=== PATIENT | male | born 1955 | race Caucasian/White ===

== ENCOUNTER 2025-08-03 23:54 | Inpatient (IN) | payer BC, SELFPAY ==
[2025-08-03 20:56] VITALS: BP 157/100
[2025-08-03 21:14] LABS: Hematocrit 40.6 % (39.0-52.0); Hemoglobin 13.8 g/dL (13.0-18.0); Mean Corp Hgb Conc. 34.0 g/dL (33.0-37.0); Mean Corpuscular Volume 90.2 fL (80.0-94.0); Nucleated Red Blood Cells % 0 % (-); Platelet Count 188 10^3/uL (130-400); Red Cell Dist. Width 12.6 % (11.5-14.5)
[2025-08-03 21:36] LABS: ALT (SGPT) 30 U/L (0-50); AST (SGOT) 27 U/L (17-59); Albumin 4.6 g/dl (3.5-5.0); Alkaline Phosphatase 61 U/L (38-126); Blood Urea Nitrogen 15 mg/dl (9-20); Calcium 9.6 mg/dl (8.4-10.2); Carbon Dioxide 25 mmol/L (22-30); Chloride 111 mmol/L (98-107); Glucose 104 mg/dl (70-99); Potassium 4.4 mmol/L (3.5-5.1); Sodium 141 mmol/L (135-145); Total Protein 7.2 g/dl (6.3-8.2); eGFR > 60.00
[2025-08-03 21:54] LABS: Troponin I 0.058 ng/ml
[2025-08-03 22:03] VITALS: BP 160/87
[2025-08-03 22:45] VITALS: BP 160/87
[2025-08-03 23:00] VITALS: BP 148/81
[2025-08-03 23:28] VITALS: BMI 23.1
--- NOTE | 2025-08-03 23:29 | ED.GENMED ---
History of Present Illness
General
Chief Complaint: Chest Pain
Source: patient and spouse
Exam Limitations: none
Time Seen by Provider: 08/03/25 23:03
Nursing documentation reviewed up to this point in time: agreed with
History of Present Illness
History of Present Illness:
69-year-old male with history of hypertension, BPH who presents to the ER with his for evaluation of chest pain. Patient was at hot yoga tonight and when he was finishing up the class he began to experience chest pain. He describes a vague
pressure sensation around 2�3/10 intensity. He says symptoms have improved slightly but not completely resolved he says he has about 1/10 intensity pressure currently. He says he had associated paresthesias in his left arm. He denies any
shortness of breath, nausea, vomiting, diaphoresis. He says he has never had issues with exertion in the past. He says that he follows with a coat checker Dr. Steven Delacruz through [facility]. He does state he had a cath years ago and was
told 'I do not need a stent.'
Review of Systems
Review of Systems
All Other Systems: ROS reviewed and negative except as documented in HPI and ROS
Constitutional: Denies fever or chills
Respiratory: Denies trouble breathing
Cardiac: Reports chest pain; Denies diaphoresis or palpitations
ABD/GI: Denies abdominal pain or nausea
Neurological: Denies dizzy or headache
Phy Exam
Physical Exam
Physical Exam:
General: Awake, alert, oriented x3; no acute distress
Head: Normocephalic, atraumatic
Eyes: Conjunctiva normal, sclera anicteric
Throat: Airway intact, handling secretions
Neck: Trachea midline, supple without meningismus
Lungs: Clear to auscultation bilaterally, no wheezing, rales, rhonchi
Heart: Regular rate and rhythm, no murmurs, gallops, or rubs
Abd: Soft, non distended, nontender
Neuro: Grossly intact
Skin: no rash
Extremities: No edema in extremities, equal pulses in all extremities
Scores
Heart Failure Risk
Heart Failure Risk Score: Not Applicable
Heart Score for Chest Pain Patients
STEMI patient?: No
History: Highly Suspicious
ECG: Nonspecific Repolarization
Age: >/= 65 years
Risk Factors: 1 or 2 Risk Factors
Troponin: >/= 3 x Normal Limit
Heart Score for Chest Pain Patients: 8
Heart Score Risk: 72.7 % MACE over next 6 weeks
Withdrawal Assessment of Alcohol
Withdrawal Assessment Completed?: Not applicable
Course
Orders/Labs/Results
Orders:
Orders
08/03/25 20:52
Electrocardiogram (*1) Urgent
Reason for Study: Chest Pain
EKG- Treatment ONCE
08/03/25 21:06
Complete Blood Count/With Diff Urgent
Comprehensive Metabolic Panel Urgent
Troponin I Urgent
08/03/25 23:22
Aspirin Chewable [Low Strength Aspirin] 243 mg PO NOW STA
08/03/25 23:27
CARDIOLOGY CONSULT Urgent
Consulting Provider: Xander Gonzalez
Was physician already notified: Yes
08/03/25 23:31
PTT Urgent
Comment: Obtain baseline before beginning heparin infusion if not already collected
Heparin 4,000 units IV NOW STA
Nursing to Place Non Medication Order As Directed
Physician Order: PTT 6 hours after initial start of Heparin infusion
Above order entered?: Yes
08/03/25 23:45
Heparin 54320 Units/250 ml 25,000 units in 250 ml IV PER PROTOCOL
Weight to be used for heparin protocol in kilograms (kg):: 69
Protocol:: Cardiac Tx/Acute Coronary
PTT Goal Range to be used:: PTT 73 to 111 seconds
Order type:: Initial
INITIAL Infusion Dose (UNITS/KG/hr) & then follow protocol:: 15 units/kg/hr
Infusion Dose in UNITS/hr & then follow protocol (UNITS/hr):: 1,050
INFUSION RATE in mL/hr & then follow protocol (mL/hr):: 10.5
PTT less than or equal to 64 seconds:: Increase rate by 200 units/hr (+ 2 mL/hr)
PTT 64.1 to 72.9 seconds:: Increase rate by 100 units/hr (+ 1 mL/hr)
PTT 73 to 111 seconds:: Target Range. No change in rate.
PTT 111.1 to 130.9 seconds:: Decrease rate by 100 units/hr (- 1 mL/hr)
PTT 131 to 199.9 seconds:: HOLD for 1 hr. Then decrease rate by 200 units/hr (- 2 mL/hr)
PTT greater than or equal to 200 seconds:: HOLD for 2 hrs & Notify Provider. Then decrease by 200 units/hr (-
2 mL/hr)
Lab follow-up:: Each change, PTT q6h until 2 consecutive are therapeutic. Then PTT
daily.
08/03/25 23:47
Admit/Transfer Patient As Directed
Co-Sign Provider:
Level of Care: Inpatient admission
Assign to:: Telemetry
Physician / Group: Jordan
Diagnosis: NSTEMI
Reason for Telemetry: Chest Pain syndromes
Date to Stop Telemetry: 08/05/25
Time to Stop Telemetry: 11:00
Reason for Hospitalization: NSTEMI
Expected length of stay greater than two midnights?: Yes
ELOS- Estimated Length of Stay in days: 2
I certify the patient meets the requirements for IP care: Yes
PRN Pain Medication Management As Directed
May give lesser potent ordered pain med per pt: Yes
preference::
Protocol:: Medication orders for pain may be administered in a
manner that supports deferring to patient preference
when the pt is:
- Requesting an ordered lesser potent pain medication.
Least to most potent pain medications are defined
as: acetaminophen < NSAID < tramadol < opioids
(morphine, oxycodone, hydromorphone).
- Requesting a lesser dose of the same medication IF
ORDERED.
- Requesting a less intrusive route of administration
if both routes are prescribed by the provider (PO <
IV).
08/03/25 23:48
Code Status As Directed
Resuscitation Status: Full Code
08/04/25 02:21
Acetaminophen [Tylenol] 650 mg PO Q4HPRN PRN
Mag Hydrox/Al Hydrox/Simeth [Maalox] 30 ml PO Q4HPRN PRN
Nitroglycerin Sublingual [Nitrostat (Sublingual)] 0.4 mg SL [id number] PRN
Ondansetron Injectable [Zofran] 4 mg IV Q6HPRN PRN
08/04/25 02:21
Echo 2D MMode Color/Doppler Routine
Reason for Study: chest pain
VTE Contraindication Routine
VTE Mechanical Device Contraindication: Medical Contraindication
Pharmocologic Contraindication: Medical Contraindication
Heparin Protocol- PTT Orders As Directed
PTT per Heparin protocol: -Obtain CBC and baseline PTT - if not already collected.
-Obtain PTT 6 hours from start of infusion. Then, every 6 hours until 2 consecutive
PTT's are therapeutic. Then, PTT Daily.
-With each rate change, obtain PTT every 6 hours until 2 consecutive PTT's are
therapeutic. Then, PTT Daily.
Activity As Directed
Activity Level: As Tolerated
ECG as needed As Directed
ECG as needed for:: Chest Pain
Additional Instructions:: with chest pain x 2 episodes.
INT (Intravenous Needle Therapy) As Directed
Comment: maintain peripheral IV access
Intake/ Output As Directed
Frequency: Per unit guidelines
Notify MD As Directed
Notify physician if: PTT is greater than or equal to 200.
Vital Signs As Directed
Frequency: q4h
Weight As Directed
Frequency: Once
Pulse Ox/spot Check [RESP] Routine
Quantity: 1
Special Instructions: on admission and then every shift if on oxygen
08/04/25 03:00
Troponin I Q3H
Comment: at admit & Q3H for 3 total including ED draws, obtain ECG with each level
08/04/25 06:00
Electrocardiogram (*1) IN AM
Reason for Study: Chest Pain
Comment: at admission and Q3H for total of 3, to be done with each troponin
NPO
Allow oral meds: Yes
Allow clear liquids: Sips of Clears
Basic Metabolic Panel IN AM
Cardiovascular Evaluation IN AM
Complete Blood Count/No Diff IN AM
Glycohemoglobin (HgbA1c) IN AM
Troponin I Q3H
Comment: at admit & Q3H for 3 total including ED draws, obtain ECG with each level
08/05/25 06:00
Complete Blood Count/No Diff Q2D
Comment: notify provider: Platelet count < 130,000 or decrease by 50% from baseline
08/05/25 11:00
DC Protocol for Telemetry ONCE
08/07/25 06:00
Complete Blood Count/No Diff Q2D
Comment: notify provider: Platelet count < 130,000 or decrease by 50% from baseline
08/09/25 06:00
Complete Blood Count/No Diff Q2D
Comment: notify provider: Platelet count < 130,000 or decrease by 50% from baseline
08/11/25 06:00
Complete Blood Count/No Diff Q2D
Comment: notify provider: Platelet count < 130,000 or decrease by 50% from baseline
08/13/25 06:00
Complete Blood Count/No Diff Q2D
Comment: notify provider: Platelet count < 130,000 or decrease by 50% from baseline
08/15/25 06:00
Complete Blood Count/No Diff Q2D
Comment: notify provider: Platelet count < 130,000 or decrease by 50% from baseline
08/17/25 06:00
Complete Blood Count/No Diff Q2D
Comment: notify provider: Platelet count < 130,000 or decrease by 50% from baseline
08/19/25 06:00
Complete Blood Count/No Diff Q2D
Comment: notify provider: Platelet count < 130,000 or decrease by 50% from baseline
Abnormal Lab Results
08/03/25
21:06
WBC 11.9 H 10^3/uL
(4.8-10.8)
RBC 4.50 L 10^6/uL
(4.70-6.10)
Abs Immat Gran (auto) 0.1 H 10^3/uL
(0-0.05)
Absolute Neuts (auto) 9.8 H 10^3/uL
(1.4-6.5)
Neutrophils % 82.7 H %
(42.2-75.2)
Lymphocytes % 10.4 L %
(20.5-51.1)
Chloride 111 H mmol/L
(98-107)
Glucose 104 H mg/dl
(70-99)
Troponin I 0.058 H* ng/ml
08/03/25 21:06
08/03/25 21:06
Vital Signs
Initial and Last Documented VS:
Initial Vital Signs
Temp Pulse Resp BP Pulse Ox
36.9 C 80 18 157/100 97
08/03/25 20:56 08/03/25 20:56 08/03/25 20:56 08/03/25 20:56 08/03/25 20:56
Last Documented Vital Signs
Temp Pulse Resp BP Pulse Ox
36.9 C 71 16 150/90 98
08/04/25 02:12 08/04/25 02:12 08/04/25 02:12 08/04/25 02:12 08/04/25 02:12
MDM/Problems Addressed
Differential Diagnosis Includes:
ACS, GERD, costochondritis
MDM/Problems Addressed:
69-year-old male presents to the ER for evaluation of chest pain that started with exertion tonight. Symptoms have improved he says are marginal at present. Hypertensive but otherwise normal vitals. EKG not acutely ischemic. Labs were sent off
including a CBC and a CMP which showed no clinically significant abnormalities but his initial troponin is elevated at 0.052 and overall clinical picture is concerning for an acute coronary syndrome. Will treat with aspirin. Started on IV heparin.
He is on Cialis and for this reason we will hold off on nitroglycerin. Discussed case with cardiology who agreed with above. Will admit to hospitalist for continued management. Case discussed with hospitalist.
Chronic conditions affecting care:
Hypertension
Acute Exacerbation and/or Progression of Chronic Illness: HTN
*Pulse Oximetry
SaO2: 96
Oxygen Mode of Delivery: Room air
Patient hypoxic: no (96%)
*EKG
Interpreted by ED Provider?: Yes
Heart Rate: 80
Rate: normal
Rhythm: sinus
[place]: normal axis
Interval: normal interval
QRS Pattern: left vent hypertrophy
Ischemia: no ischemia
*Critical Care Note
Total Time (30-74mins, 75-104mins- exclusive of procedures): Not Applicable
Data Reviewed
Source: patient and spouse
Patient Management
Discussion with other providers: Hospitalist (Discussed with hospitalist) and Hemodialysis Charge Nurse (Discussed with coat checker)
Escalation/DeEscalation of care consider admission/obs:
Admission indicated
ED Attending Note
-
Portions of this chart may have been created with voice recognition software.� Occasional wrong word or��sound alike� substitutions may have occurred due to the inherent limitations of voice recognition software.
Discharge Plan
Departure
Patient Disposition: Admit
Date of Disposition: 08/03/25
Time of Disposition: 23:30
Admit to doctor: Jordan
Presentation/result/management discussed w/ accepting MD/DO: Hospitalist
Discharge Problem:
Non-ST elevation MA (NSTEMI)
Interventions
Interventions:
*Risk Screen - Suicide Last Done: 08/03/25 21:02
*General Assessment Last Done: 08/03/25 21:02
*Neglect/Abuse Screening Last Done: 08/03/25 21:02
*ED- Fall Risk Assessment Last Done: 08/03/25 22:45
*ED COVID-19 Vaccine History Last Done: 08/03/25 21:02
*ED Influenza Vaccine History Last Done: 08/03/25 21:02
*Nursing Disposition Last Done: 08/04/25 01:57
ED- Cardiac Assessment Last Done: 08/03/25 22:44
Discharge Date and Time
Discharge Date/Time: 08/04/25 01:59
--- NOTE | 2025-08-03 23:51 | HPS.HSE ---
Family Physician
-
Family Physician: Juice Cardenas
Chief Complaint
-
Chest pain
History of Present Illness
This is a 69-year-old male with past medical history significant for hypertension, hyperlipidemia, BPH presenting to the emergency department with approximately 2-1/2 hours of chest pain starting at the end of his use or activity this evening.
Patient reports being in usual state of health up until starting the exercise. He had a reports having typical extraneous exercise which she has done over 400 times without any issues. Towards the end of the exercise he started noticing left-sided
pain that he describes as a 1-2 out of 10 and persistent but not exacerbated with exertion. He was able to continue exercise despite the pain. At the end of the activity he notes the persistence of his chest pain and decided to come to the
emergency department. He denied having any diaphoresis nausea or vomiting. He denies feeling short of breath. He denies any radiation to the hands neck shoulders or back or shoulders. He does report some mild tingling in his left fingertips.
Patient reported that he had a prior stress test a few years ago which was complicated by arrhythmia during the stress for which she had a cardiac cath that showed nonobstructive CAD. He reports compliance with his daily aspirin statin and
carvedilol. He has a family history with both parents positive for CAD status post NV.
In the emergency department patient was afebrile, blood pressure 160/87 with a pulse rate of 74 and he was satting 98% on room air. ECG shows a normal sinus rhythm at a rate of 80 without any acute ischemic changes. Initial troponin was elevated
at 0.06. CBC was unremarkable, electrolytes BUN and creatinine were normal.
Medical History
Past Medical History
Past Medical History: Reports HTN, Hypercholesterolemia and Other (BPH)
Past Surgical History: Reports Tonsilectomy
Social History
Tobacco: Non-smoker
Alcohol: Occasional
Drug: None
Employment: Retired
Family History
Family History: Not pertinent
Allergies / Home Medications
Allergies reflects when Allergies were last updated in [facility].
Home Medications with original date entered in [facility]
Allergy/Medication List:
Allergies
Allergy/AdvReac Type Severity Reaction Status Date / Time
No Known Allergies Allergy Unverified 08/03/25 21:02
Home Medications
carvedilol phosphate 20 mg capsule,[id number] multiphase 20 mg PO DAILY 08/04/25
finasteride 5 mg tablet 5 mg PO DAILY 08/04/25
rosuvastatin 20 mg tablet 20 mg PO QPM 08/04/25
tadalafil 5 mg tablet 5 mg PO 08/04/25
Review of Systems
-
Constitutional: Reports No Symptoms
EENT: Reports No Symptoms
Respiratory: Reports No Symptoms
Cardiac: Reports Chest Pain
Abdomen/GI: Reports No Symptoms
: Reports No Symptoms
Musculoskeletal: Reports No Symptoms
Skin: Reports No Symptoms
Neurological: Reports No Symptoms
Endocrine: Reports No Symptoms
Hematologic/Lymphatic: Reports No Symptoms
Psych: Reports No Symptoms
Physical Exam
Vital Signs
Vital Signs
Temp Pulse Resp BP Pulse Ox
98.4 F 74 14 160/87 96
08/03/25 20:56 08/03/25 22:45 08/03/25 22:45 08/03/25 22:45 08/03/25 23:31
Physical Exam
General: Well Developed, Well Nourished and No Apparent Distress
HEENT: NormoCephalic, Moist mucous membranes and Atraumatic
Respiratory: Clear
Cardiac: S1/S2 and Regular Rhythm; No Murmur or Rub
GI: Soft, Non Tender, Non Distended and Normal Bowel Sounds; No Organomegaly
Rectal: Deferred by Provider
Musculoskeletal: No Clubbing, No Cyanosis and No Edema
Skin: No Rash
Neuro: AO x 3 and Nonfocal/grossly intact
Hematologic/Lymphatic: No Lymphadenopathy
Psych: Calm
Laboratory Results
-
08/03/25 21:06
08/03/25 21:06
Laboratory Results
Total Bilirubin 0.7 mg/dl (0.2-1.3) 08/03/25 21:06
AST 27 U/L (17-59) 08/03/25 21:06
ALT 30 U/L (0-50) 08/03/25 21:06
Alkaline Phosphatase 61 U/L (38-126) 08/03/25 21:06
Troponin I 0.058 ng/ml H* 08/03/25 21:06
Data Reviewed
-
Medical Tests (Nuc Med, Echo, EKG etc): Image Personally Visualized and interpreted
Lab Data: Labs Reviewed by me
Impression/Plan
-
IMPRESSION:
69-year-old with past medical history of hypertension, hyperlipidemia, BPH presenting to the emergency department with acute episode of chest pain during yoga just a briefly before coming to the emergency department. Chest pain is decreased to 1
out of 10 point still slightly symptomatic. He is no shortness of breath. Is hemodynamically stable. ECG is nonischemic and initial troponin was 0.06.
PLAN:
NSTEMI -chest pain with elevated troponin without EKG changes.
-Admit to telemetry
-N.p.o.
-Started on heparin
-Continue aspirin 81, rosuvastatin and carvedilol
-Nitroglycerin as needed chest pain
-Antiemetics
-Cardiovascular panel, A1c, echo in a.m.
-Cardiology consult
DVT prophylaxis�on heparin drip
CODE STATUS�full code
[2025-08-04] VITALS (29 sets, daily range): BP systolic 103–162; BP diastolic 61–90; BMI 23.1
[2025-08-04] MEDS: LOW STRENGTH ASPIRIN 243 MG PO (00:23)
[2025-08-04] MEDS: HEPARIN 4000 UNITS IV (00:41)
[2025-08-04] MEDS: HEPARIN 25000 UNITS/250 ML IV ×2 (00:42→17:15)
[2025-08-04 00:46] LABS: APTT 21.9 Sec (23.4-35.0)
[2025-08-04 01:36] LABS: Troponin I 0.533 ng/ml
--- NOTE | 2025-08-04 04:08 | PTCARENOTE ---
Rec'd patient from ER. Heparin drip infusing as ordered. stable vitals. AAOx3. No complaints at this time. SR in 60s-70s on tele. POC reviewed with patient.
[2025-08-04 04:39] LABS: Troponin I 1.080 ng/ml
[2025-08-04 07:01] LABS: Hematocrit 38.4 % (39.0-52.0); Hemoglobin 13.1 g/dL (13.0-18.0); Mean Corp Hgb Conc. 34.1 g/dL (33.0-37.0); Mean Corpuscular Volume 91.2 fL (80.0-94.0); Platelet Count 176 10^3/uL (130-400); Red Cell Dist. Width 12.6 % (11.5-14.5)
[2025-08-04 07:05] LABS: INR 1.02; PT 13.9 Sec (11.4-14.6)
[2025-08-04 07:07] LABS: APTT 69.7 Sec (23.4-35.0)
[2025-08-04 07:24] LABS: Calcium 8.9 mg/dl (8.4-10.2); Carbon Dioxide 21 mmol/L (22-30); Chloride 112 mmol/L (98-107); Estimated Creatinine Clearance 81 ml/min; Glucose 97 mg/dl (70-99); HDL Cholesterol 68 mg/dl; LDL Cholesterol, Calculated 35 mg/dl; Potassium 3.9 mmol/L (3.5-5.1); Sodium 140 mmol/L (135-145); Very Low Density Lipoprotein 19 mg/dl (0-30); eGFR > 60.00
[2025-08-04 07:25] LABS: Troponin I 1.720 ng/ml
--- NOTE | 2025-08-04 07:28 | CON.CAR ---
Addendum entered and electronically signed by Xander Gonzalez MD 08/04/25 09:47:
I saw and examined the patient.
The Application Development Liaison's note was reviewed and I agree with the note.
Comment: GEN: No distress, awake, Ox3
HEENT: supple, anicteric, mmm
LUNGS: CTA, no wheezes/rales
CV: Reg, S1/S2, 1/6 syst LSB, no gallop
ABD: soft, BS+, NT/ND
EXT: No edema
NEURO: Gross non-focal
SKIN: No rash
Plan:
61-year-old male with proximal medical history of hypertension, hyperlipidemia and a family history of coronary disease presents with chest tightness and chest pressure during a high intensity yoga session. He had left-sided pain which persisted
after WAS done and driving home. Ultimately he came to the emergency room and was found to have an abnormal troponin of 0.58 increasing to 1.72. His pain has improved significantly. He was placed on IV heparin and aspirin. He denies any coughing
or wheezing. He has no fevers or chills. Previous cardiac cath per patient was unremarkable in 2020 although he believes he had a RCA lesion which was treated medically. He does have a history of aortic disease.
Non-STEMI. Continue aspirin and heparin. Hold on IV nitroglycerin with tadalafil therapy.
Will proceed with cardiac catheterization.
Continue carvedilol and Crestor. Check lipids.
Will check echocardiogram to evaluate LVH and questionable aorta. Will check records.
Original Note:
Consultation
Consultation Request
Date/Time Consultation Requested: 08/03/2025 at 2327
Date/Time Consultation Performed: 08/04/2025 at 0726
Requesting Provider: Dr. Urena
Performing Provider: Dr. Gonzalez
Reason for Consultation: Chest pain, ACS
Medical History
-
History of Present Illness:
Patient came to the ER last evening with chest pain that started during his exercise and cardiology is consulted for elevated troponin. Patient says that he follows with Dr. Steven Delacruz at [facility] and sees him once a year for a history of
abnormal stress test due to arrhythmia in the past that led to cardiac catheterization in approximately 2020 and showed nonobstructive CAD. Since then he sees his towboat operator annually and gets a an echo every 1 to 2 years to follow-up on possible
LVH versus possible aortic valve disease. Patient last saw his towboat operator a year ago and actually has an appointment coming up in the next 1 to 2 weeks. Patient goes to a high intensity yoga session for exercise and has completed 400 sessions
without ever experiencing the symptoms that he had last night, he said that 45 minutes into the hour-long yoga class he started with a left-sided chest pain that persisted even after the class was done and he was driving home. Initial troponin was
elevated at 0.058, but ECG without acute ischemic changes. His troponin is up to 1.72 this morning and he has ongoing 1 out of 10 chest discomfort. Patient is on heparin gtt and was given aspirin. Patient was not given NTG SL due to his use of
tadalafil.
PMH:
Nonobstructive CAD by cardiac cath in approximately 2020
HTN
Hyperlipidemia
FH CAD
Past Medical History
Past Medical History: Other (In HPI)
Past Surgical History: Tonsilectomy
Social History
Tobacco: Non-Smoker
Alcohol: Occasional (Drinks wine on the weekend)
Drug: None
Personal:
Living: With Family
Employment: Employed
Family History
Family History: CAD (mother and father with CAD in their 60s)
Allergies / Home Medications
Allergy/AdvReac Type Severity Reaction Status Date / Time
No Known Allergies Allergy Unverified 08/03/25 21:02
�Medication �Instructions �Recorded �Confirmed �Type
aspirin 81 mg capsule 81 mg PO DAILY 08/04/25 08/04/25 History
carvedilol phosphate 20 mg 20 mg PO DAILY 08/04/25 08/04/25 History
capsule,[id number] multiphase
finasteride 5 mg tablet 5 mg PO DAILY 08/04/25 08/04/25 History
rosuvastatin 20 mg tablet 20 mg PO QPM 08/04/25 08/04/25 History
tadalafil 5 mg tablet 5 mg PO Q48H 08/04/25 08/04/25 History
Review of Systems
-
History Source: Patient
All other systems: Negative unless noted
Physical Exam
Vital Signs
Temp Pulse Resp BP Pulse Ox
98.4 F 69 16 150/83 97
08/04/25 03:54 08/04/25 03:54 08/04/25 03:54 08/04/25 03:54 08/04/25 03:54
GEN: NAD. AAOx3
HEENT: EOMI, MMM
LUNGS: RA. CTA B/L, no wheeze
CV: SR on tele. Reg, S1/S2, no murmur
ABD: soft, BS+, NT, ND
EXT: No clubbing, cyanosis, lesions or edema B/L
NEURO: Gross non-focal
SKIN: No rash
Lab Results
08/04/25 06:43
08/04/25 06:43
Troponin I 1.720 ng/ml H* D 08/04/25 06:43
Impression / Plan
-
PCP: Dr. Juice Cardenas
Card: Dr. Steven Delacruz [facility]
Impression:
Admitted with chest pain and elevated troponin 08/03/2025
NSTEMI
Nonobstructive CAD by cardiac cath in approximately 2020
HTN
Hyperlipidemia
FH CAD
Echo 08/04/2025: Study pending
Plan:
-Patient came to the ER last evening with chest pain that started during his exercise and cardiology is consulted for elevated troponin. Patient says that he follows with Dr. Steven Delacruz at [facility] and sees him once a year for a history of
abnormal stress test due to arrhythmia in the past that led to cardiac catheterization in approximately 2020 and showed nonobstructive CAD. Since then he sees his towboat operator annually and gets a an echo every 1 to 2 years to follow-up on possible
LVH versus possible aortic valve disease. Patient last saw his towboat operator a year ago and actually has an appointment coming up in the next 1 to 2 weeks. Patient goes to a high intensity yoga session for exercise and has completed 400 sessions
without ever experiencing the symptoms that he had last night, he said that 45 minutes into the hour-long yoga class he started with a left-sided chest pain that persisted even after the class was done and he was driving home. Initial troponin was
elevated at 0.058, but ECG without acute ischemic changes. His troponin is up to 1.72 this morning and he has ongoing 1 out of 10 chest discomfort. Patient is on heparin gtt and was given aspirin. Patient was not given NTG SL due to his use of
tadalafil.
-ECG reviewed by me is SR without acute ST changes
-Initial troponin 0.058 and now trending up to 1.72. Will check another troponin at about 10:00 this morning, ordered by me
-I have reached out to the patient's primary towboat operator to try and get his records including cardiac cath from approximately 2020
-Check echo, ordered by me and coordinated with the echo lab department
-Reviewed with patient that given his chest pain, risk factors for CAD and elevated troponin there is concern that his presentation is consistent with ACS/NSTEMI and that cardiac catheterization is recommended. Patient is agreeable to cardiac cath
and had uneventful right radial access with his last cath. We discussed the risks versus the benefits of cardiac cath.
-Patient was given aspirin 3 and 24 mg overnight and then I have ordered 81 mg daily to start now.
-LDL is 35 and his outpatient dose of rosuvastatin 20 mg daily has been continued
-Outpatient dose of Coreg CR 20 mg daily has been changed to Coreg 12.5 mg BID due to formulary changes
-Consult cardiac rehab pending results of cardiac cath
[2025-08-04 07:34] LABS: Blood Urea Nitrogen 15 mg/dl (9-20)
[2025-08-04] MEDS: COREG 12.5 MG PO (08:11)
[2025-08-04] MEDS: PROSCAR 5 MG PO (08:11)
[2025-08-04 08:40] LABS: Glycohemoglobin (HgbA1c) 5.6 % (4.0-5.6)
[2025-08-04] MEDS: LOW STRENGTH ASPIRIN 81 MG PO (09:29)
--- NOTE | 2025-08-04 09:58 | PTCARENOTE ---
Patient to laborer chemical processing, transported in bed with chart by laborer chemical processing team. Hep gtt capped by laborer chemical processing team prior to transport.
--- NOTE | 2025-08-04 10:02 | ITS.CL.CATH ---
Assistant Manager/Embalmer - Catheterization
Cardiac Catheterization
Procedure Report:
LEFT HEART CATHETERIZATION
Date of Procedure: August 04, 2025
Referring: Jignesh Gonzalez MD
PROCEDURES:
1. Left heart catheterization, coronary angiogram.
2. Moderate sedation.
INDICATION: Concern for NSTEMI
ACCESS: Right radial artery, 6Fr. sheath, under US guidance.
HEMODYNAMICS : (mmHg)
AO (s/d) : 110/67
LVEDP : 15
No significant gradient across the aortic valve to suggest aortic stenosis.
CORONARY FINDINGS
Dominance: Right
Left Main Trunk (LMT): Large caliber vessel that gives rise to the LAD, RI and LCx branches. Ostial to proximal left main has 70% stenosis.
Left Anterior Descending Artery (LAD): Large caliber vessel that gives off 1 major diagonal branches as it courses along the anterior inter-ventricular groove before wrapping around the cardiac apex. Mid LAD has has diffuse 60 to 70% stenosis
spanning across a small caliber diagonal branch.
Ramus Intermedius (RI): The ramus intermedius branch is a medium caliber vessel with mild diffuse atherosclerotic plaque.
Left Circumflex Artery (LCx): Medium to large caliber vessel with 30% left circumflex stenosis in the midportion and 70 to 75% in the distal portion and between the 2 small caliber left posterolateral branches.
Right Coronary Artery (RCA): Large caliber dominant vessel that gives rise to the posterior descending artery (RPDA) and postero-lateral ventricular (RPLV) branches distally. The RCA and its branches are free of angiographic disease.
SEDATION: 37 minutes of procedural sedation was utilized. IV Midazolam and IV Fentanyl were administered. An independent medical bill processor was present to assist with and help manage the patient's level of consciousness and physiologic status.
RADIATION SUMMARY: Fluoro Time (min): 3.4, Dose (mGy): 324, DAP (Gy.cm2) : 17
Closure Device: There were no immediate intra-procedural complications. The sheath was pulled in the labelling machine operator and a vascular-band applied to the right wrist for radial artery hemostasis using the patent hemostasis technique.
CONCLUSIONS
1. Multivessel coronary artery disease involving the left main.
2. LVEDP 15 mmHg.
RECOMMENDATIONS
1. Wean radial band per protocol. Monitor right hand perfusion and for bleeding from the radial site following removal of the vascular-band following trans-radial access.
2. Continue aggressive medical therapy and risk factor modification for secondary CAD prevention.
3. Hydrate with normal saline to mitigate the risk of contrast-induced acute kidney injury.
4. CT surgery consult for consideration for coronary artery bypass grafting due to significant left main disease with consideration for bypasses to LAD, ramus intermedius and left circumflex arteries as feasible.
5. Full echocardiogram to assess biventricular function and rule out any significant valvular abnormalities.
6. Obtain prior records especially cath films from 2020 from OSH for comparison.
Lyssa Arcos MD, FAC, [facility]
Copy to: Jignesh Gonzalez MD
--- NOTE | 2025-08-04 10:51 | CM ---
CM following re: discharge planning.
Reviewed pt's chart, met with pt and pt's spouse at bedside.
Pt is a 69 year old male, admitted with primary dx of NSTEMI -chest pain with elevated troponin. PMH: hypertension, hyperlipidemia, BPH.
Pt reports he lives with spouse and a daughter 2SH, 1 steps to enter, has 4 supportive children. 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 No DME, VN or SNF history.
PCP: Juice Cardenas
Pharmacy: [facility]
D/c plan: home with anticipated no needs. Spouse to transport at discharge.
CM will follow with discharge plan updates as hospitalization progresses
[2025-08-04 10:52] LABS: ACT-LR - POC 255 Seconds (116-155)
[2025-08-04 11:09] LABS: Troponin I 2.350 ng/ml
--- NOTE | 2025-08-04 11:51 | CONSULT.CT ---
Consultation
-
Date/Time Consultation Requested: 08/04/25
Date/Time Consultation Performed: 08/04/25
Requesting Provider: Lyssa Arcos MD
Performing Provider: Tami METZGER for
Reason for Consultation: NSTEMI/MVCAD>CABG evaluation
Patient History
Physicians
Family Physician: Juice Cardenas
Outpatient Auto Air Conditioning Apprentice: Steven Delacrzu ([facility])
Inpatient Auto Air Conditioning Apprentice: [facility]
Past Medical History
Past Medical History: HTN, Hypercholesterolemia and Other (BPH)
Past Surgical History
Past Surgical History: Tonsilectomy
Social History
Alcohol: Occasional
Drug: None
Tobacco: Non-Smoker
Personal:
Living: With Spouse
Employment: Employed
Allergies
Allergy/AdvReac Type Severity Reaction Status Date / Time
No Known Allergies Allergy Unverified 08/03/25 21:02
Home Medications
�Medication �Instructions �Recorded �Confirmed �Type
aspirin 81 mg capsule 81 mg PO DAILY Blood Clot 08/04/25 08/04/25 History
Prevention/Tx
carvedilol phosphate 20 mg 20 mg PO DAILY Blood Pressure 08/04/25 08/04/25 History
capsule,ext.[id number] multiphase
finasteride 5 mg tablet 5 mg PO DAILY Urinary Issue 08/04/25 08/04/25 History
rosuvastatin 20 mg tablet 20 mg PO QPM High Cholesterol 08/04/25 08/04/25 History
tadalafil 5 mg tablet 5 mg PO Q48H Lung/Breathing Issues 08/04/25 08/04/25 History
Physical Exam
Vital Signs
Temp 97.8 F 08/04/25 07:00
Temp route: Oral 08/04/25 07:00
Pulse 72 08/04/25 11:35
Rhythm: Normal sinus rhythm 08/04/25 09:00
Resp Rate 16 08/04/25 07:00
Blood pressure 113/68 08/04/25 11:35
Blood pressure extremity used: Left upper arm 08/04/25 11:34
Position: Lying 08/04/25 11:34
MAP (cuff-Barbara Monitor) 83 08/04/25 11:35
SaO2 95 08/04/25 11:35
Oxygen Mode of Delivery Room air 08/04/25 11:34
Can the patient verbally communicate their pain? Yes 08/04/25 11:34
Pain scale ratin 08/04/25 11:34
Actual Weight 66.769 kg 08/04/25 02:12
Body Mass Index (BMI) 23.1 08/04/25 02:12
Labs
08/04/25 06:43
08/04/25 06:43
PT 13.9 Sec (11.4-14.6) 08/04/25 06:43
APTT 69.7 Sec (23.4-35.0) H 08/04/25 06:43
Hemoglobin A1c 5.6 % (4.0-5.6) 08/04/25 06:43
Troponin I 2.350 ng/ml H* D 08/04/25 10:09
[2025-08-04] MEDS: NSS 1000 IV (12:23)
--- NOTE | 2025-08-04 14:49 | W.PN.UPDATE ---
Update Note
Progress Note Update
Tried to see twice once on 2nd floor and once in IVU but still in labor operator.
Had discussed with Cards this am - plan was for cardiac cath.
Cath report noted - MVD n LVEDP 15Mmg - case referred to CTS.
Call us if any new issues.
--- NOTE | 2025-08-04 14:51 | CONSULT.CT ---
Consultation
-
Date/Time Consultation Requested: 08/04/25
Date/Time Consultation Performed: 08/04/25 1500
Requesting Provider: Dr. Lyssa Arcos MD.
Performing Provider: Caro Black PA-C
Reason for Consultation: Left main multivessel CAD, eval for coronary artery revascularization
Patient History
Physicians
Family Physician: Dr. Juice Cardenas MD.
Outpatient Actuarial Science Teacher: Dr. bg Mtz
Inpatient Actuarial Science Teacher: Hamlet Gonzalez MD
History of Present Illness
Patient is extremely pleasant 69-year-old male with PMH significant for nonobstructive CAD by cardiac cath in 05/2021 at [facility] (Santo Schulte MD.) managed medically, HTN, HLD, BPH, and family history of CAD.
Patient has had yearly follow-up with his supervisor powdered metal ever since his catheterization in 2020. He was doing well until yesterday evening while at a yoga class. He began to feel left-sided chest pain which was unrelieved with rest and prompted the
patient to seek medical attention. He presented to [facility] emergency department for further evaluation. Further workup in the emergency department revealed an EKG with sinus rhythm, no ischemic changes were seen. Lab work ruled the patient in for
NSTEMI with peak troponin of 2.35. Subsequent cardiology consultation was obtained.
Given the patient's presentation he was taken to the [facility] today 08/04/[address] Acros and found to have left main multivessel CAD. Please see Dr. Arcos's full report for complete details summary is outlined below:
LM: 70%
LAD: 60-70% mid
RI: mild diffuse atherosclerotic plaque
LCx: 30% mid, 70-75% distal
RCA: RCA and its branches are free of angiographic disease
Due to the above findings, CT surgery was consulted for evaluation for coronary artery revascularization.
Past Medical History
Past Medical History: Other
Nonobstructive CAD by cardiac cath in 05/2021 at [facility] (Santo Schulte MD.) managed medically
HTN/HLD
BPH
Family history of CAD.
Past Surgical History
Past Surgical History: Other
Tonsillectomy
Cardiac catheterization 05/2021 (Santo Schulte MD.)
Eye surgery secondary to detached retina 2013
Dental History
Noncontributory
Family History
Mother: at Age (84) and Cause of (Complications after total hip arthroplasty)
Father: at Age (82) and Cause of (Myocardial infarction)
Family Medical History: Early CAD (Patient's mother and father both underwent bypass surgery)
Social History
Alcohol: Occasional (6 drinks per week via wine)
Drug: None
Tobacco: Non-Smoker
Personal: (4 total children)
Living: With Spouse
Employment: Retired (Formally worked in [employer])
Allergies
Allergy/AdvReac Type Severity Reaction Status Date / Time
No Known Allergies Allergy Unverified 08/03/25 21:02
Home Medications
�Medication �Instructions �Recorded �Confirmed �Type
aspirin 81 mg capsule 81 mg PO DAILY Blood Clot 08/04/25 08/04/25 History
Prevention/Tx
carvedilol phosphate 20 mg 20 mg PO DAILY Blood Pressure 08/04/25 08/04/25 History
capsule,ext.[id number] multiphase
finasteride 5 mg tablet 5 mg PO DAILY Urinary Issue 08/04/25 08/04/25 History
rosuvastatin 20 mg tablet 20 mg PO QPM High Cholesterol 08/04/25 08/04/25 History
tadalafil 5 mg tablet 5 mg PO Q48H Lung/Breathing Issues 08/04/25 08/04/25 History
Review of Systems
-
History Source: Patient
General: Denies Fever, Weight Gain, Weight Loss, Fatigue or Night Sweats
HEENT: Denies Visual Changes, Dysphagia, Hoarseness or Sore Throat
Respiratory: Denies SOB, KILLIAN, Cough, Asthma or PND
Cardiac: Reports Chest Pain; Denies Known Vascular Disease, Palpitations, Nausea, Vomiting, Diaphoresis or Edema
Abdomen/GI: Denies Abdominal Pain, Reflux, Indigestion, Nausea, Vomiting, Constipation or BRBPR
: Reports Nocturia; Denies Dysuria, Frequency, Incontinence, Urgency or Hematuria
Musculoskeletal: Denies Myalgias, Arthralgias, Joint Pain or Edema
Skin: Denies Itching or Rash
Neurological: Denies CVA, TIA, Headaches, Dizzy, Weakness or Seizures
Vascular: Denies Claudication
Physical Exam
Vital Signs
Temp 97.8 F 08/04/25 07:00
Temp route: Oral 08/04/25 07:00
Pulse 65 08/04/25 14:20
Rhythm: Normal sinus rhythm 08/04/25 09:00
Resp Rate 16 08/04/25 07:00
Blood pressure 110/66 08/04/25 14:20
Blood pressure extremity used: Left upper arm 08/04/25 12:06
Position: Lying 08/04/25 12:06
MAP (cuff-Barbara Monitor) 81 08/04/25 14:20
SaO2 96 08/04/25 14:20
Oxygen Mode of Delivery Room air 08/04/25 14:34
Can the patient verbally communicate their pain? Yes 08/04/25 14:34
Pain scale ratin 08/04/25 12:19
Actual Weight 147 lb 3.2 oz 08/04/25 02:12
Body Mass Index (BMI) 23.1 08/04/25 02:12
Labs
08/04/25 06:43
08/04/25 06:43
PT 13.9 Sec (11.4-14.6) 08/04/25 06:43
APTT Cancelled 08/04/25 13:15
Hemoglobin A1c 5.6 % (4.0-5.6) 08/04/25 06:43
Troponin I 2.350 ng/ml H* D 08/04/25 10:09
Diagnostic Studies
EK08/03/25
SR (80 bpm)
Cardiac Catheterization: 08/04/25 Arcos
LM: 70%
LAD: 60-70% mid
RI: mild diffuse atherosclerotic plaque
LCx: 30% mid, 70-75% distal
RCA: RCA and its branches are free of angiographic disease
Exam
General: Well Developed, Well Nourished and No Apparent Distress
HEENT: Normocephalic, Moist Mucous Membranes, Atraumatic, PERRLA and EOMI
Neck: Trachea Midline; Negative Carotid Bruit
Respiratory: Clear; Negative Wheezes, Crackles, Rhonchi or Accessory Muscle Use
Cardiac: S1/S2 and Regular Rhythm; Negative Murmur, Rub or Gallop
GI: Soft, Non Tender, Non Distended and Normal Bowel Sounds
Rectal: Deferred by Provider
Skin: Warm and Dry; Negative Rash
Neuro: AO x 3, No Motor Deficits and CN X-XII Intact
Extremities: Negative Upper Level Edema, Lower Level Edema, Upper Level Cyanosis, Lower Level Cyanosis, Upper Level Clubbing or Lower Level Clubbing
Psych: Calm
Assessment / Plan
-
Assessment:
69-year-old male with PMA significant for:
Nonobstructive CAD by cardiac cath in 05/2021 at [facility] (Santo Schulte MD.) managed medically
HTN/HLD
BPH
Family history of CAD
Now with newly diagnosed:
Unstable angina
NSTEMI, peak troponin of 2.35
Dilated aorta obtained through history by the patient
Plan:
Patient's case will be discussed with attending physician
CT surgery preoperative workup will be initiated including evaluation of the patient's left palmar arch
STS risk stratification will be performed when all data is obtained
Continue medical management and heparin drip via cardiology
Continue primary management via hospitalist service
Further details regarding patient's intervention will be discussed after attending's full evaluation
--- NOTE | 2025-08-04 17:10 | PTCARENOTE ---
Received patient. Pt ambulated from the stretcher into the room. A&Ox4. Denies pain, shortness of breath, and nausea. WEISS with equal strength throughout. NSR on tele with rates in the 60s. BP 141/84. Bilateral radial and DP pulses palpable. No edema
noted. POX 98% on Ra. Lungs clear throughout. No cough noted. Abdomen soft, nontender. +BS. Pt due to void for this RN. Right radial cath site soft, no hematoma noted, dressing CDI. Left hand 20g PIV intact, heparin gtt started. Orientation to CVICU
room completed. All questions answered.
[2025-08-04] MEDS: CRESTOR 20 MG PO (17:15)
--- NOTE | 2025-08-04 18:14 | W.PN.UPDATE ---
Update Note
Progress Note Update
STS RISK SCORE
Procedure Type:�Isolated CABG
Perioperative Outcome Estimate %
Operative Mortality 0.834%
Morbidity & Mortality 3.73%
Stroke 0.711%
Renal Failure 0.464%
Reoperation 2.17%
Prolonged Ventilation 1.73%
Deep Sternal Wound Infection 0.061%
Long Hospital Stay (>14 days) 1.64%
Short Hospital Stay (<6 days)* 70%
Clinical Summary
Planned Surgery: Isolated CABG, Urgent, First cardiovascular surgery
Demographics: 69 year old, male, 66.7kg, 170cm, BMI: 23.1 kg/m�
Lab Values: Creatinine: 0.8 mg/dL, Hematocrit: 38.4%, WBC Count: 8.1 10�/�L, Platelet Count: 169555 cells/�L
Substance Abuse: Never smoker, Alcohol use: 2-7 drinks/week
Risk Factors / Comorbidities: Hypertension, Family Hx of CAD
Cardiac Status: NYHA Class II, Ejection Fraction = 55%
Coronary Artery Disease: 2 vessels diseased, Left Main Stenosis >=50%, Non-ST Elevation WV, WV: 1 to 7 Days
Valve Disease: Mild MR, Trivial/Trace TR
[2025-08-04 19:15] LABS: Troponin I 2.280 ng/ml
[2025-08-04] MEDS: COREG 6.25 MG PO (19:40)
--- NOTE | 2025-08-04 20:38 | PTCARENOTE ---
Received patient from previous rn. Pt A&Ox4. Denies pain, shortness of breath, and nausea. WEISS with equal strength throughout. NSR on tele with rates in the 60s. Bilateral radial and DP pulses palpable. No edema noted. POX 100% on Ra. Lungs clear
throughout. No cough noted. Abdomen soft, nontender. +BS. Right radial cath site soft, no hematoma noted, dressing CDI. Left hand 20g PIV intact, heparin gtt infusing. call rice within reach.
--- NOTE | 2025-08-04 23:15 | PTCARENOTE ---
report received from previous RN. pt in bed sleeping. Heparin gtt infusing per protocol via PIV. NSR on monitor, HR 60s. +peripheral pulses. bilateral breath sounds present. POX 100% on RA. Abd soft, nontender. +BS. right radial cath site stable,
CDI. see worklist for full assessment, VS, and interventions.
[2025-08-05] VITALS (7 sets, daily range): BP systolic 118–157; BP diastolic 73–91
[2025-08-05 00:55] LABS: APTT 65.5 Sec (23.4-35.0)
[2025-08-05 01:07] LABS: Troponin I 1.630 ng/ml
[2025-08-05 06:29] LABS: Hematocrit 36.9 % (39.0-52.0); Hemoglobin 12.7 g/dL (13.0-18.0); Mean Corp Hgb Conc. 34.4 g/dL (33.0-37.0); Mean Corpuscular Volume 90.2 fL (80.0-94.0); Platelet Count 167 10^3/uL (130-400); Red Cell Dist. Width 12.7 % (11.5-14.5)
[2025-08-05 06:38] LABS: APTT 87.0 Sec (23.4-35.0)
--- NOTE | 2025-08-05 07:10 | W.PN.UPDATE ---
Update Note
Progress Note Update
Patient and his are requesting transfer to [place] for second opinion. Wanted to be transferred overnight, explained transfer process. Patient in agreement to wait until daytime to talk with attending provider about transfer.
[2025-08-05 07:18] LABS: Blood Urea Nitrogen 13 mg/dl (9-20); Calcium 8.6 mg/dl (8.4-10.2); Carbon Dioxide 23 mmol/L (22-30); Chloride 111 mmol/L (98-107); Estimated Creatinine Clearance 81 ml/min; Glucose 103 mg/dl (70-99); Potassium 4.3 mmol/L (3.5-5.1); Sodium 140 mmol/L (135-145); eGFR > 60.00
[2025-08-05] MEDS: PROSCAR 5 MG PO (08:39)
[2025-08-05] MEDS: LOW STRENGTH ASPIRIN 81 MG PO (08:39)
[2025-08-05] MEDS: COREG 6.25 MG PO ×2 (08:40→20:33)
--- NOTE | 2025-08-05 10:06 | W.PN.CARDCBS ---
Addendum entered and electronically signed by Xander Gonzalez MD 08/05/25 18:04:
I saw and examined the patient.
The [employer]'s note was reviewed and I agree with the note.
Comment:
GEN: No distress, awake, Ox3
HEENT: supple, anicteric, mmm
LUNGS: CTA, no wheezes/rales
CV: Reg, S1/S2, 1/6 syst LSB, no gallop
ABD: soft, BS+, NT/ND
EXT: No edema
NEURO: Gross non-focal
SKIN: No rash
Plan:
No further chest pains. I reviewed the results of his catheterization with him and his at length. Dr. Fernandez also discussed treatment options at length with him. The patient and his are now agreeable to proceed with coronary bypass
surgery in a.m. here at [facility].
Continue IV heparin, aspirin, Coreg, and rosuvastatin.
LDL is 35, creatinine is normal.
Original Note:
Today's Communication / Plan
-
Ongoing discussions regarding CABG
Chest pain-free
In sinus rhythm
Continue IV heparin, aspirin, Coreg, Crestor
Impression / Plan
-
PCP: Dr. Juice Cardenas
Card: Dr. Steven Delac[facility]
Impression:
Admitted with chest pain and elevated troponin 08/03/2025
NSTEMI
MV CAD including L main disease 08/04/25
HTN
Hyperlipidemia
FH CAD
Echo 08/04/2025: EF 55%, mild MR, trace TR, PAP 26 mmHg
Plan:
- Patient presented with chest pain during exercise and ruled in for NSTEMI with peak troponin of 2.3
- Underwent cardiac catheterization 08/04/2025 which revealed multivessel CAD including left main disease
- Patient was referred for bypass surgery. CT WHIPPED TOPPING MIXER and Dr. Wolfe extensively reviewed bypass with patient 08/04, and plan was for bypass today
- Patient's at bedside is overwhelmed. She relayed this is the first time she or her have been faced with a significant medical issue. They have a family friend on the ward service supervisor at [facility], and are contemplating a second
opinion at [facility]. We did discuss results of cath again this morning and that with left main lesion, patient is not safe for discharge, so any second opinion would need to be an inpatient transfer. She brings up second opinion to ensure
stenting is not an option. We discussed with left main disease as well as multivessel coronary disease that the recommended treatment option would be bypass surgery. She is requesting a second opinion from a CT surgeon here.
- Reviewed results of echocardiogram with patient and , EF preserved
- He remains chest pain-free
- Continue aspirin, IV heparin, Crestor, Coreg
- Await patient/family decision after additional discussions with CT surgery here
- Discussed with nursing. Discussed with CT surgical WHIPPED TOPPING MIXER
PREADMIT DATA:
-Patient came to the ER last evening with chest pain that started during his exercise and cardiology is consulted for elevated troponin. Patient says that he follows with Dr. Steven Delacruz at [facility] and sees him once a year for a history of
abnormal stress test due to arrhythmia in the past that led to cardiac catheterization in approximately 2020 and showed nonobstructive CAD. Since then he sees his real estate agent annually and gets a an echo every 1 to 2 years to follow-up on possible
LVH versus possible aortic valve disease. Patient last saw his real estate agent a year ago and actually has an appointment coming up in the next 1 to 2 weeks. Patient goes to a high intensity yoga session for exercise and has completed 400 sessions
without ever experiencing the symptoms that he had last night, he said that 45 minutes into the hour-long yoga class he started with a left-sided chest pain that persisted even after the class was done and he was driving home. Initial troponin was
elevated at 0.058, but ECG without acute ischemic changes. His troponin is up to 1.72 this morning and he has ongoing 1 out of 10 chest discomfort. Patient is on heparin gtt and was given aspirin. Patient was not given NTG SL due to his use of
tadalafil.
Progress Note - Electronic Instrument Trades Worker
Subjective
Date of Service: August 05, 2025
Denies chest pain, shortness of breath
Objective
Labs:
08/05/25 06:13
08/05/25 06:13
Labs
Hgb 12.7 g/dL (13.0-18.0) L 08/05/25 06:13
Hct 36.9 % (39.0-52.0) L 08/05/25 06:13
Plt Count 167 10^3/uL (130-400) 08/05/25 06:13
PT 13.9 Sec (11.4-14.6) 08/04/25 06:43
INR 1.02 08/04/25 06:43
APTT 87.0 Sec (23.4-35.0) H 08/05/25 06:13
Sodium 140 mmol/L (135-145) 08/05/25 06:13
Potassium 4.3 mmol/L (3.5-5.1) 08/05/25 06:13
BUN 13 mg/dl (9-20) 08/05/25 06:13
Creatinine 0.8 mg/dL (0.7-1.3) 08/05/25 06:13
Glucose 103 mg/dl (70-99) H 08/05/25 06:13
Troponins
08/03/25 08/04/25 08/04/25
21:06 00:14 00:51
Troponin I 0.058 H* Cancelled 0.533 H* D
08/04/25 08/04/25 08/04/25
03:53 06:43 10:09
Troponin I 1.080 H* D 1.720 H* D 2.350 H* D
08/04/25 08/05/25
18:35 00:27
Troponin I 2.280 H* 1.630 H* D
Vital Signs and I&O:
Vital Signs
Temp Pulse Resp BP Pulse Ox
98.3 F 68 18 157/91 98
08/05/25 08:00 08/05/25 08:40 08/05/25 08:00 08/05/25 08:40 08/05/25 08:00
Vital Signs
Temp Pulse Resp BP Pulse Ox
98.3 F 68 18 157/91 98
08/05/25 08:00 08/05/25 08:40 08/05/25 08:00 08/05/25 08:40 08/05/25 08:00
Intake & Output
08/03/25 08/04/25 08/05/25 08/06/25
07:59 07:59 07:59 07:59
Intake Total 0 / 0
Balance 0 / 0
Physical Exam
Physical Exam
GEN: No distress, awake, alert, oriented x3
HEENT: supple, anicteric, mmm, EOMI
LUNGS: CTA bilaterally, no wheezes/rales
CV: Reg, S1/S2, no murmur
ABD: soft, BS+, NT/ND
EXT: No cyanosis, clubbing, edema
NEURO: Gross non-focal
SKIN: Warm, pink, dry. No rash. Right wrist site clean dry and intact
--- NOTE | 2025-08-05 11:11 | W.PN.UPDATE ---
Update Note
Progress Note Update
Patient and his had further discussion with Dr. Fernandez and Harry. Patient now agreeable to proceed with CABG with Dr. Fernandez. Patient scheduled for CABG in 08/06/2025. Overview of recovery process discussed with patient and his .
--- NOTE | 2025-08-05 11:15 | PTCARENOTE ---
emotional support provided to both patient and as well as pre operative teaching regarding his possible CABG to be done here vs other facility. Tami DAVIS bedside, along with Silva HWANG, Dr Gonzalez and now Dr Fernandez. plan for OR tomorrow for
CABG with Dr Fernandez. patient and both seem happy and comfortable with decision. will continue to monitor.
[2025-08-05 12:38] LABS: APTT 96.9 Sec (23.4-35.0)
--- NOTE | 2025-08-05 13:04 | CM ---
Reviewed chart. Met with Mr. Shetty to review discharge plans. He states prior to admission he resides with his spouse on a two story home with two steps to enter the home form the front and four steps from the garage. He states she has a full
flight of steps to get to bedroom/full bathroom. He states he has a powder room on the first floor. He states prior to admission he was independent with ambulation and adls. He state he has a powder room on the first floor. He states he does not
have any DME in the home. He states he has a prescription plan. He states his spouse works outside the home. Medical work-up in progress. The discharge plan is to return home with his spouse and a home visit by the Transitional Care Nurse when
medically stable.
We reviewed pre-op and post-op routines. We briefly reviewed the shower instructions. Gave him the Cardiothoracic Surgery Educational Booklet. We also reviewed restrictions including sternal precautions and driving restrictions. We discussed a
home visit by the Cardiothoracic Transitional Care Nurse. He is agreeable to a home visit. The plan is to CABG on Wednesday, August 06, 2025.
--- NOTE | 2025-08-05 15:00 | PTCARENOTE ---
Received handoff from Audrey MOSS. Pt OOB in chair. Independent in room. at bedside. VSS at this time with no c/o pain. heparin gtt infusing and currently therapeutic. All needs met at this time, call rice within reach.
[2025-08-05] MEDS: HEPARIN 25000 UNITS/250 ML IV (15:01)
[2025-08-05] MEDS: CRESTOR 20 MG PO (17:45)
--- NOTE | 2025-08-05 19:11 | PTCARENOTE ---
Patient OOB in chair. No c/o CP throughout shift. at bedside. VSS at this time. Heparin gtt infusing. All needs met, call rice within reach, handoff report given to nightshift RN.
--- NOTE | 2025-08-05 20:00 | PTCARENOTE ---
assumed care of patient @ 1900. received pt laying in bed, aox3. VSS on RA. Chest pain free. Heparin gtt at Pt surgically clipped and assisted to shower with CHG soap. heparin gtt at 11.5, PTT therapeutic. will shower again in AM. resting
comfortably in bed with call rice within reach .
[2025-08-05 20:32] LABS: Hepatitis C Antibody Negative (Negative)
[2025-08-06] VITALS (11 sets, daily range): BP systolic 92–147; BP diastolic 55–91; BMI 22.9
--- NOTE | 2025-08-06 | PTCARENOTE ---
pt resting comfortably with call rice within reach. NPO. no change in assessment .
--- NOTE | 2025-08-06 03:30 | PTCARENOTE ---
Assumed care of the patient at 0330. No acute changes from previous shift assessment. Patient oriented, sleeping between care, VSS.
--- NOTE | 2025-08-06 06:28 | W.CVOR.SURPR ---
CVOR Surgeon Immed Pre Op
-
I have examined this patient prior to performance of the scheduled procedure.
The patient's condition is unchanged from the time of the dictated/written History and
Physical and the patient is able to undergo the scheduled procedure.
CABG x 3 +/- LAAE
--- NOTE | 2025-08-06 06:34 | PTCARENOTE ---
Patient clipped and prepped in a surgical fashion, wiped with CHG, new gown applied, questions encouraged, none indicated at this time. Call rice within reach, await call from CVOR during day shift.
[2025-08-06 06:52] LABS: APTT 84.1 Sec (23.4-35.0)
--- NOTE | 2025-08-06 07:30 | PTCARENOTE ---
Patient received from night shift manager resting comfortably in bed, AAO X 3, denies pain. NSR via cm, SaO2 @ 96% on RA. Heparin infusing per protocol. Awaiting CVOR later this am, updated to plan of care, in agreement. See work list for full assessment
and interventions performed.
[2025-08-06] MEDS: MAGNESIUM OXIDE 400 MG PO (07:53)
[2025-08-06] MEDS: BACTROBAN 2% OINTMENT 1 APPLIC NASAL ×2 (07:53→20:42)
[2025-08-06] MEDS: LOPRESSOR 25 MG PO (07:53)
[2025-08-06] MEDS: PROTONIX 40 MG PO (07:53)
--- NOTE | 2025-08-06 07:59 | CM ---
Reviewed chart. Mr. Shetty is in the operating room today. Prior to admission he resides with his spouse on a two story home with two steps to enter the home from the front and four steps from the garage. He has a full flight of steps to get to
bedroom/full bathroom. He has a powder room on the first floor. Prior to admission he was independent with ambulation and adls. He does not have any DME in the home. He has a prescription plan. His spouse works outside the home. Medical work-up
in progress. The discharge plan is to return home with his spouse and a home visit by the Transitional Care Nurse when medically stable.
[2025-08-06] MEDS: COREG PO (09:48)
[2025-08-06] MEDS: PROSCAR PO (09:48)
[2025-08-06] MEDS: LOW STRENGTH ASPIRIN PO (09:48)
--- NOTE | 2025-08-06 12:08 | PTCARENOTE ---
VS obtained, assessment stable. Awaiting CVOR imminently.
--- NOTE | 2025-08-06 12:36 | PTCARENOTE ---
Heparin d/c'd building inspection engineer to CVOR. Patient transported to CVOR via bed.
[2025-08-06 13:10] LABS: Urine Character Clear (Clear)
[2025-08-06 13:25] LABS: ACT+ - POC 142 Seconds (82-134)
[2025-08-06 14:06] LABS: Urine Squamous Cell >30 /LPF (Few)
[2025-08-06 14:07] LABS: Urine Red Blood Cell 50-60 /HPF (0-2)
[2025-08-06 14:08] LABS: Urine White Cell 0-2 /HPF (0-5)
[2025-08-06 14:38] LABS: ACT+ - POC 274 Seconds (82-134)
[2025-08-06 14:49] LABS: ACT+ - POC 365 Seconds (82-134)
[2025-08-06 15:17] LABS: B.E. - POC 0.2 mmol/L; Glucose - POC 89 mg/dl (70-99); HCO3 - POC 25 mmol/L (21-28); Hematocrit - POC 35 % PCV (42-52); Hemodilution- POC No; Hemoglobin Calculated - POC 12.0; Ionized Calcium - POC 1.20 mmol/L (1.15-1.33); Lactate - POC < 0.30 mmol/L (0.36-0.75); O2 Saturation %Calculated-POC 100.0 % (94-98); PCO2 - POC 38 mmHg (35-48); PO2 - POC 419 mmHg (83-108); Potassium - POC 3.6 mmol/L (3.5-5.1); Sodium - POC 139 mmol/L (136-145); Specimen Type - POC Arterial; pH - POC 7.42 (7.35-7.45)
[2025-08-06 15:45] LABS: ACT+ - POC 352 Seconds (82-134)
[2025-08-06 16:44] LABS: ACT+ - POC 145 Seconds (82-134)
[2025-08-06] MEDS: PACERONE PO ×2 (17:06→23:15)
[2025-08-06] MEDS: NEURONTIN PO ×2 (17:07→23:14)
[2025-08-06] MEDS: TYLENOL PO ×2 (17:09→22:00)
--- NOTE | 2025-08-06 17:20 | W.PN.CT.SURG ---
CT Surgery Operative Note
-
CARDIAC SURGERY OPERATIVE REPORT
Preoperative Diagnosis: Multivessel Coronary Artery Disease with NSTEMI, progressive coronary disease and angina with exercise
Postoperative Diagnosis: Same
Procedure(s) Performed:
1. Standard Sternotomy
2. Internal Mammary Artery Harvesting, Left
3. Coronary artery bypass grafting x 3 (In situ RIZO to LAD, Ao to RSVG to ramus intermedius, Ao to RSVG to OM1)
4. Endoscopic vein harvesting of right saphenous vein
5. Transesophageal echocardiography
6. Left atrial appendage ligation using 40 mm AtriClip
Date of Surgery: 08/06/2025
Comorbidities:
1. Hypertension
2. Hyperlipidemia
3. BPH
Attending Surgeon: Sandy Wolfe MD, MPH
Assistants: Sourav Vallejo PA-C (present and necessary to international first officer, endoscopic vein harvest, retraction, suction, exposure, suture management, and wound closure under my direction), Sourav Fernandez MD, MS (assisted with distal anastomosis OM1 and
RI)
Anesthesiology: Shakeel Scott MD and Deena Virgen CRNA
Scrub and Circulating RNs: Adeel Wen RN, Isaac Ortega RN
Pedigree Tracer: Benny Lopez CCP
Anesthesia: GETA
EBL: 500cc
Products: 500 cc Cell Saver
Indication(s) for Procedures: Mr. Shetty is a 69-year-old male with hypertension hyperlipidemia who presented with acute angina in the setting of exercise, was at yoga class. Left heart cath was performed and confirmed severe multivessel coronary
artery disease with a very significant left main lesion which is a trifurcating vessel and him. He had non-ST elevations but did have significant troponin leak. Given NSTEMI presentation and severe left main lesion, he was admitted and decision
made for inpatient CABG.
Conduit(s) Quality:
RIZO -great quality vessel that was notably spasmed when harvested. Confirmed great flow and did pump up nicely with papaverine.
RSVG -great quality vessel with no significant varicosities or sclerosis.
Target(s) Quality:
RI -this is a good-sized vessel, fit a 2mm flow-through shunt. The tissue was somewhat fragile but the vessel itself did not have significant disease. Flow probe indicates good flow 14 cc/min with a pulse index of 3
OM -there were multiple OM vessels, however all were quite small. OM1 was the largest vessel which fit a 1 mm flow-through shunt. Flow probe indicates very good flow at 17 cc a minute with a pulse index of 3
LAD -this is a great quality vessel and we were able to identify an area in the distal LAD without significant disease. A 2 mm flow-through shunt was placed easily. Flow probe indicated excellent flow at 12 cc/min with a pulse index of 1.8.
Findings: Preop BRITTNI shows normal LV function without significant regional wall motion abnormalities, EF 55% and mild MR. Postoperatively BRITTNI is stable again showing no regional wall motion abnormalities. Patient remained in normal sinus rhythm
throughout the case and did not require pacing. The left atrial appendage was easily visualized and exposed and was of decent size so we opted to ligate. The ramus intermedius target was of good size and the vessel appeared to be without disease,
however the tissue was quite friable and we did have to redo the anastomosis as part of the artery tore when trying to place a small repair stitch. His tissue was otherwise okay. LAD was of excellent caliber. OM1 was the smallest vessel however
there was flow and a good lumen. The RIZO was harvested in a skeletonized fashion. Following bypass grafting, hemostasis was confirmed in each vessel. Each distal was probed both proximally and distally to confirm disease and patency, respectively.
Description of Procedure: The patient was taken to the operating room. Their identity and procedure to be performed were verified and they were positioned supine on the operating table. Induction via general anesthesia with endotracheal intubation
was performed and central venous access and arterial monitoring were inserted. A preoperative transesophageal echocardiogram was performed to assess cardiac function and valvular function. The patient was then prepped and draped from chin to feet in
a sterile fashion. A preoperative time-out was performed with all members of the team present. A midline chest incision was performed along with median sternotomy. Simultaneous endoscopic access of the right lower extremity for saphenous vein
harvest was obtained along with administration of an initial 5,000 units of IV heparin. A RulTract sternal retractor was positioned to exposure the left internal mammary bed. The mammary was harvested and found to have good flow. A bulldog clamp was
applied to the distal end of the mammary after dividing it. It was wrapped in a papaverine soaked RayTec and replaced back into the left hemithorax. The RulTract was exchanged for a median sternal retractor. The innominate vein was isolated.
Remainder of heparinization was given (a total of 15,000 units for dose 150mg/kg or ACT > 300).
The pericardium was opened and retracted laterally, pericardial well was created and window was created for the JULIEN taking care to visualize and avoid the phrenic nerve. I positioned the heart to expose the LAD. A skagway blade was used to expose the
coronary and perform the arteriotomy. Coronary Valladares scissors were used to enlarge the incision. We retrieved the RIZO from the chest and the distal end of the mammary was prepped and beveled to size. We verified orientation and length of the JULIEN
and found brisk flow. An end-to-side anastomosis was created with a 7-0 prolene. We released the bulldog clamp on the mammary to inspect flow. Perfusion to the LAD territory was visualized and hemostasis was confirmed. Next we positioned the heart
to expose the lateral wall. A suitable site on the ramus intermedius was chosen. We dissected and prepared the distal target in a similar fashion. The saphenous vein was trimmed and beveled to an appropriate size. The distal anastomosis was
performed using 7-0 prolene in an end-to-side fashion. This initially appeared ok with a small leak at the heal requiring a repair stitch. However, when we placed this the arterial tissue at the heal tore requiring take down of the anastomosis and
revision. The edges of the vein were recut to freshen then anastomosis performed again using 7-0 prolene in an end-to-side fashion. We confirmed hemostasis. The graft was measured for length to the aorta and cut. At this point we had great
visualization of the left atrial appendage, we visually inspected for size and opted to place a 40 mm AtriClip. We then positioned the heart to expose the more posterior lateral wall. A suitable site on the first obtuse marginal artery was chosen.
We dissected and prepared the distal target in a similar fashion. The saphenous vein was trimmed and beveled to an appropriate size. The distal anastomosis was performed using 7-0 prolene in an end-to-side fashion. The graft was measured for length
to the aorta and cut. We created 2 aortotomies with the assistance of the Startup Threads device. The proximal anastomoses were created in an end-to-side fashion using 6-0 prolene. At this point all distal and proximal anastomoses were inspected for
hemostasis. Protamine was administered by Anesthesia with an initial test dose to monitor for any adverse reaction. The mammary bed was inspected and hemostasis was confirmed. Once the mediastinum was hemostatic, 19Fr Feliberto drain was placed in the
left pleural cavity and two 24Fr Feliberto drains were placed within the pericardium. The sternum was approximated with 4 #7 single and 3 #8 double stainless steel wires. Fascia was approximated with #1 vicryl suture. The subcutaneous, dermis and
epidermis were closed in layers in a running fashion. The skin wound was cleansed and dressed.
All instrument, sponge, and needle counts were confirmed to be correct x 2 at the end of the operation. The patient was transferred to the cardiac intensive care unit in critical but stable condition.
I, Dr. Sandy Wolfe, was present, scrubbed for, and performed all critical elements of this procedure.
Sandy Wolfe MD, MPH
Cardiothoracic Surgeon
[facility]
This operative dictation was created using the [employer] dictation system. Please excuse any grammatical, typographical, or 'sound alike' errors
[2025-08-06] MEDS: CRESTOR PO (17:21)
[2025-08-06 17:37] LABS: Glucose - Point of Care 128 mg/dl (70-99)
[2025-08-06] MEDS: ANCEF 10 IV (17:47)
[2025-08-06] MEDS: NSS 500 IV (17:47)
[2025-08-06 17:49] LABS: B.E. -4.7 mmol/L; HCO3 21.1 mmol/L (21-28); O2 Saturation % 99.9 % (94-98); PCO2 41 mmHg (35-48); PO2 128 mmHg (83-108); Potassium 4.1 mMOL/L (3.5-5.1); Sodium 135 mMOL/L (136-145)
[2025-08-06 18:01] LABS: INR 1.40; PT 17.4 Sec (11.4-14.6)
[2025-08-06 18:02] LABS: APTT 25.5 Sec (23.4-35.0)
[2025-08-06] MEDS: DILAUDID 0.5 MG IV (18:03)
[2025-08-06 18:04] LABS: Hematocrit 32.4 % (39.0-52.0); Hemoglobin 11.3 g/dL (13.0-18.0); Platelet Count 119 10^3/uL (130-400)
[2025-08-06 18:07] LABS: Glucose - Point of Care 95 mg/dl (70-99)
[2025-08-06] MEDS: CALCIUM GLUCONATE 100 IV (18:09)
--- NOTE | 2025-08-06 18:13 | PTCARENOTE ---
Patient received from CVOR s/p OPCABG x 3/LAAL. RIJ Cordis/Eitzen-Ty catheter, L radial arterial lines present - leveled, flushed, and calibrated w/good waveforms returned. Mediastinal chest tubes x 2, Y-connected to one pleurevac, L pleural chest
tube to separate collection chamber - both placed to -20cm suction w/no air leaks or crepitus noted. Muñoz catheter to gravity. All procedural sites stable. Labs drawn, EKG performed, pcxr obtained. MATHEW Caridad updated to lab results, hemodynamics. See
work list for full assessment, interventions performed, and intravenous infusions and titrations.
[2025-08-06 18:19] LABS: Blood Urea Nitrogen 13 mg/dl (9-20); Estimated Creatinine Clearance 93 ml/min; Glucose 125 mg/dl (70-99); Magnesium 2.0 mg/dl (1.6-2.3)
[2025-08-06 18:57] LABS: Glucose - Point of Care 121 mg/dl (70-99)
--- NOTE | 2025-08-06 19:16 | PTCARENOTE ---
Assumed care of patient at 1900. Patient found resting in bed at time of assessment. Patient is currently intubated, responds to verbal stimuli and will following commands upon waking, moves all extremities. Lung sounds are clear and loud, there is
an 8.0 ETT sitting 23cm at the lip, saO2 99% on 40% FiO2, patient currently on SIMV vent settings see worklist for details, there are CTx3: L pleural draining to one atrium and 2xmeds draining to another atrium red sanguineous. Heart sounds are
audible, there is a rub present on auscultation, normal palpable pulses, and no observable edema. Patient is SR on the monitor. Hypoactive BS present in all four quadrants and kramer draining clear yellow urine. There is a sternal incision approx
with surg adhesive ORVILLE, R groin puncture approx with surg adhesive BINDER LAYER, and RLE incision with an TOMÁS wrap. Patient has R IJ cordis with swan santana at 45cm, L radial Yomaira, and L hand 20G PIV. Patient is on the following gtts: Cordis/VIP KVO, Insulin
gtt col 2, Cardene 2.5, Precedex 0.3. Vital signs as follows T-97.9 RR-14, P-75 BP-116/65 MAP-83 PAP-22/10 CVP-7 CI-2.1.
[2025-08-06 20:10] LABS: Glucose - Point of Care 101 mg/dl (70-99)
[2025-08-06] MEDS: ANCEF 5 IV (20:41)
[2025-08-06] MEDS: SENOKOT PO (20:42)
[2025-08-06 20:44] LABS: B.E. -3.1 mmol/L; HCO3 22.0 mmol/L (21-28); O2 Saturation % 96.7 % (94-98); PCO2 39 mmHg (35-48); PO2 79 mmHg (83-108); Potassium 4.0 mMOL/L (3.5-5.1)
[2025-08-06 20:55] LABS: Hematocrit 36.9 % (39.0-52.0); Hemoglobin 12.9 g/dL (13.0-18.0); Platelet Count 174 10^3/uL (130-400)
[2025-08-06] MEDS: OFIRMEV 100 IV (20:59)
--- NOTE | 2025-08-06 21:00 | PTCARENOTE ---
Patient following commands appropriately, prolonged periods of wakefulness. Started CPAP trial at 2004 and ABG drawn at 2034. Results relayed to CT PA received orders to extubated. Patient extubated at 2054 and placed on 6L via NC with saO2 94%.
Patient answered all orientation questions correctly. Patient c/o pain in sternum given prn ofirmev. Education and plan of care provided to patient and significant other. Call rice within reach.
--- NOTE | 2025-08-06 21:01 | RESPNOTE ---
Pt successfully extubated to 6L NC at 2050 w/ RN at bedside. Pt's abg prior to extubation was acceptable and pt was tolerating SBT trial well. Pt did IS post extubation fairly well. Pt is experiencing some pain which RN is aware and is taking care
of.
[ End ]
[2025-08-06 21:10] LABS: Glucose - Point of Care 98 mg/dl (70-99)
--- NOTE | 2025-08-06 21:11 | W.PN.CARDCBS ---
Today's Communication / Plan
-
Wean to extubate
Supportive postoperative care
Eventual add Plavix given preoperative non-STEMI
Impression / Plan
-
PCP: Dr. Juice Cardenas
Card: Dr. Steven Delacruz [facility] [place]
Impression:
Admitted with chest pain and elevated troponin 08/03/2025
NSTEMI
MV CAD including L main disease 08/04/25
HTN
Hyperlipidemia
FH CAD
Echo 08/04/2025: EF 55%, mild MR, trace TR, PAP 26 mmHg
Plan:
NSTEMI with peak troponin of 2.3 s/p cardiac catheterization 08/04/2025 which revealed multivessel CAD including left main disease s/p Coronary artery bypass grafting x 3 (In situ RIZO to LAD, Ao to RSVG to ramus intermedius, Ao to RSVG to OM1) and
Left atrial appendage ligation using [address] Lares 08/06/25
- Patient seen and examined postop. He is awake but still ventilated on CPAP trial awaiting extubation. He is following commands and moving extremities.
-Hemodynamically stable currently off pressors
- Postoperative EKG personally reviewed: Normal sinus rhythm with voltage criteria nonspecific T wave abnormality.
- Postoperative lab work: Hemoglobin 12.9 BUN/creatinine 13/0.7.
- Intraoperative BRITTNI with normal LV function with no significant regional wall motion abnormalities and EF 55%. Mild MR. Postoperative BRITTNI stable.
-Supportive postoperative care
-Updated at bedside
PREADMIT DATA:
-Patient came to the ER last evening with chest pain that started during his exercise and cardiology is consulted for elevated troponin. Patient says that he follows with Dr. Steven Delacruz at [facility] and sees him once a year for a history of
abnormal stress test due to arrhythmia in the past that led to cardiac catheterization in approximately 2020 and showed nonobstructive CAD. Since then he sees his cryptoanalysis teacher annually and gets a an echo every 1 to 2 years to follow-up on possible
LVH versus possible aortic valve disease. Patient last saw his cryptoanalysis teacher a year ago and actually has an appointment coming up in the next 1 to 2 weeks. Patient goes to a high intensity yoga session for exercise and has completed 400 sessions
without ever experiencing the symptoms that he had last night, he said that 45 minutes into the hour-long yoga class he started with a left-sided chest pain that persisted even after the class was done and he was driving home. Initial troponin was
elevated at 0.058, but ECG without acute ischemic changes. His troponin is up to 1.72 this morning and he has ongoing 1 out of 10 chest discomfort. Patient is on heparin gtt and was given aspirin. Patient was not given NTG SL due to his use of
tadalafil.
Progress Note - Program Therapist
Subjective
Date of Service: August 06, 2025
seen and examined postop with nursing at bedside. at bedside. Patient is awake on CPAP wean to extubate postop. Moving all extremities. Off pressors and Cardene.
Objective
Labs:
08/06/25 20:39
08/06/25 17:37
Labs
Hgb 12.9 g/dL (13.0-18.0) L 08/06/25 20:39
Hct 36.9 % (39.0-52.0) L 08/06/25 20:39
Plt Count 174 10^3/uL (130-400) D 08/06/25 20:39
PT 17.4 Sec (11.4-14.6) H 08/06/25 17:37
INR 1.40 08/06/25 17:37
APTT 25.5 Sec (23.4-35.0) 08/06/25 17:37
Sodium 140 mmol/L (135-145) 08/05/25 06:13
Potassium 4.3 mmol/L (3.5-5.1) 08/05/25 06:13
BUN 13 mg/dl (9-20) 08/06/25 17:37
Creatinine 0.7 mg/dL (0.7-1.3) 08/06/25 17:37
Glucose 125 mg/dl (70-99) H 08/06/25 17:37
Troponins
08/03/25 08/04/25 08/04/25
21:06 00:14 00:51
Troponin I 0.058 H* Cancelled 0.533 H* D
08/04/25 08/04/25 08/04/25
03:53 06:43 10:09
Troponin I 1.080 H* D 1.720 H* D 2.350 H* D
08/04/25 08/05/25
18:35 00:27
Troponin I 2.280 H* 1.630 H* D
Vital Signs and I&O:
Vital Signs
Temp Pulse Resp BP Pulse Ox
99 F 91 15 94/55 94
08/06/25 21:07 08/06/25 21:05 08/06/25 21:07 08/06/25 20:00 08/06/25 21:07
Vital Signs
Temp Pulse Resp BP Pulse Ox
99 F 91 15 94/55 94
08/06/25 21:07 08/06/25 21:05 08/06/25 21:07 08/06/25 20:00 08/06/25 21:07
Intake & Output
08/04/25 08/05/25 08/06/25 08/07/25
06:59 06:59 06:59 06:59
Intake Total 0 / 0 600 / 600 203.5 / 203.5
Output Total 505 / 505
Balance 0 / 0 600 / 600 -301.5 / -301.5
Physical Exam
Physical Exam
General:Awake with ET tube. Following commands.
Neck: _ cortis + SGC
Heart: Regular, positive S1/S2,No murmur
Lungs: CTA b/l, negative wheezes AL + CT
Abd: Positive BS, NT
Ext: No edema
Neuro: nonfocal
[2025-08-06] MEDS: LR 250 ML IV (21:28)
[2025-08-06] MEDS: DILAUDID 0.25 MG IV (21:32)
[2025-08-06] MEDS: LOW STRENGTH ASPIRIN 81 MG PO (22:01)
[2025-08-06 22:11] LABS: Glucose - Point of Care 90 mg/dl (70-99)
[2025-08-07] VITALS (28 sets, daily range): BP systolic 98–141; BP diastolic 65–81; PULSE 85; O2SAT 95–96; BMI 23.8
--- NOTE | 2025-08-07 | PTCARENOTE ---
Patient reassessed. Remains SR on the monitor. [address] PA. 1xdilaudid 0.25 for pain. On/off cardene for BP management. All other VSS. Call rice within reach.
[2025-08-07 00:02] LABS: Glucose - Point of Care 105 mg/dl (70-99)
[2025-08-07] MEDS: ROXICODONE 5 MG PO ×2 (02:09→21:15)
[2025-08-07 03:47] LABS: Hematocrit 36.2 % (39.0-52.0); Hemoglobin 12.4 g/dL (13.0-18.0); Mean Corp Hgb Conc. 34.3 g/dL (33.0-37.0); Mean Corpuscular Volume 88.1 fL (80.0-94.0); Platelet Count 161 10^3/uL (130-400); Red Cell Dist. Width 12.2 % (11.5-14.5)
--- NOTE | 2025-08-07 04:02 | ECGCV ---
Ha HWANG notified of ECG critical value identified by electronic interpretation on ECG completed on 08.07.25, at 0355.
[2025-08-07 04:09] LABS: Blood Urea Nitrogen 16 mg/dl (9-20); Calcium 8.0 mg/dl (8.4-10.2); Carbon Dioxide 18 mmol/L (22-30); Chloride 110 mmol/L (98-107); Estimated Creatinine Clearance 81 ml/min; Glucose 99 mg/dl (70-99); Magnesium 1.8 mg/dl (1.6-2.3); Potassium 4.2 mmol/L (3.5-5.1); Sodium 136 mmol/L (135-145); eGFR > 60.00
[2025-08-07 04:20] LABS: Glucose - Point of Care 96 mg/dl (70-99)
[2025-08-07 04:20] LABS: Glucose - Point of Care 75 mg/dl (70-99)
[2025-08-07 04:24] LABS: Glucose - Point of Care 106 mg/dl (70-99)
[2025-08-07] MEDS: ANCEF 5 IV ×2 (04:33→12:25)
[2025-08-07] MEDS: LR 250 ML IV (04:34)
[2025-08-07 04:55] LABS: B.E. -8.2 mmol/L; O2 Saturation % 95.2 % (94-98); PCO2 27 mmHg (35-48); PO2 69 mmHg (83-108); Potassium 3.7 mMOL/L (3.5-5.1)
[2025-08-07 04:59] LABS: HCO3 15.6 mmol/L (21-28)
[2025-08-07 05:07] LABS: Glucose - Point of Care 96 mg/dl (70-99)
[2025-08-07] MEDS: SODIUM BICARBONATE 100 MEQ IV (05:23)
[2025-08-07] MEDS: CARDENE 200 IV (06:23)
[2025-08-07] MEDS: TYLENOL 975 MG PO ×3 (06:23→21:15)
[2025-08-07 06:29] LABS: Glucose - Point of Care 99 mg/dl (70-99)
[2025-08-07] MEDS: DILAUDID 0.25 MG IV (06:29)
--- NOTE | 2025-08-07 07:00 | PTCARENOTE ---
Orders received to deline patient. Hampton removed. While delining swan CT PA requested this RN maintain A line d/t poor ABG results. Following swan removal patient's BP rising. Cardene increased to control BP. 0.25 dilaudid administered to manage
pain. Patient to remain in bed this AM.
--- NOTE | 2025-08-07 07:16 | CON.INTV ---
Addendum entered and electronically signed by Wen Davis MD 08/08/25 09:46:
08/08
Patient transferred to Telemetry service
Hot Header Operator service will sign off, please call as needed.
Original Note:
Consultation
Consultation Request
Date/Time Consultation Requested: 08/06/2025
Date/Time Consultation Performed: 08/07/2025
Medical History
-
Chief Complaint: Chest pain
History of Present Illness:
Patient is a 69-year-old gentleman with history of hypertension and hyperlipidemia who presented to the hospital on 08/03 with episode of chest pain. Patient was noted to have elevated troponin and was ruled out for acute myocardial infarction,
NSTEMI. Patient was evaluated by cardiology service and had a left heart catheterization performed which showed left main disease. Subsequently cardiothoracic surgery was consulted and a coronary artery bypass graft was recommended. Patient was
taken to OR on 1003 and postprocedure was admitted to CVICU. Hot Header Operator consultation was requested for further input.
Past Medical History
Past Medical History: Reports HTN, Hypercholesterolemia and Other (BPH)
Past Surgical History: Reports Tonsilectomy
Social History
Tobacco: Non-smoker
Alcohol: Occasional
Drug: None
Employment: Retired
Family History
Family History: Not pertinent
Allergies / Home Medications
Allergies / Home Medications
Allergies
Allergy/AdvReac Type Severity Reaction Status Date / Time
No Known Allergies Allergy Unverified 08/03/25 21:02
Home Medications
�Medication �Instructions �Recorded �Confirmed �Last Taken �Type
aspirin 81 mg capsule 81 mg PO DAILY Blood Clot 08/04/25 08/04/25 08/03/25 History
Prevention/Tx
carvedilol phosphate 20 mg 20 mg PO DAILY Blood Pressure 08/04/25 08/04/25 08/03/25 History
capsule,[id number] multiphase
finasteride 5 mg tablet 5 mg PO DAILY Urinary Issue 10/11/2808/04/25 08/03/25 History
rosuvastatin 20 mg tablet 20 mg PO QPM High Cholesterol 08/04/25 08/04/25 08/02/25 History
tadalafil 5 mg tablet 5 mg PO Q48H Lung/Breathing Issues 08/04/25 08/04/25 08/03/25 History
Review of Systems
-
Hematologic/Lymphatic: Other (All 14 systems reviewed and negative except as stated above in the history of present illness.)
Vitals / Labs / Diagnostic Testing
Vital Signs
Temp Pulse Resp BP Pulse Ox
100.2 F 94 15 107/68 97
08/07/25 06:00 08/07/25 07:05 08/07/25 07:05 08/07/25 07:00 08/07/25 07:05
Lab Data
08/07/25 03:33
08/07/25 03:33
Laboratory Results
08/06/25 08/06/25 08/07/25
17:37 20:39 04:47
PT 17.4 H
INR 1.40
APTT 25.5
pH 7.32 L 7.36 7.37
pCO2 41 39 27 L
pO2 128 H 79 L 69 L
HCO3 21.1 22.0 15.6 L*
O2 Delivery Level
Diagnostic Testing:
Physical Exam
-
HEENT: Normocephalic
Cardiovascular: S1/S2
Respiratory: Clear
GI: Soft and Non Distended
Neurology: Awake and Alert
Skin: Warm
General: Comfortable
Assessment
-
69-year-old gentleman presented with NSTEMI, noted to have coronary artery disease, s/p coronary artery bypass graft, left atrial appendage ligation, POD # 1
Titrated off pressors per protocol, currently nicardipine infusing at 5 mg/h, MAP of 70.
ECHO reviewed with normal function
Management of chest tubes per primary service
Patient extubated, currently requiring 6 L of supplemental oxygen and saturating 92%.
CXR reviewed, low lung volumes, significantly reduced lung volume on the left side, suspect left lower lobe atelectasis
Maintain supplement oxygen as needed
Incentive spirometry encouraged
No prior history of pulmonary disease
Prior PFTs reviewed
Can add nebulizers if needed
Aspiration precautions
Encouraged incentive spirometry, OOB/ambulation/early mobility
Advance diet as tolerated following extubation
GI prophylaxis: Protonix
Monitor critical I/O's
Muñoz/chest tube output
Hb/platelets postoperatively, mild drift
Trend CBC for now
Can transfuse if indicated for Hb <7, plt <50 in surgical patients
DVT prophylaxis including SCDs
Insulin protocol initiated and ongoing
Transition to SQ/off as indicated per team
Other medical diagnoses:
- Minimal bibasilar pulmonary scarring. Out patient pulmonary follow up with PFTs and 6 min walk test. Information added to d/c section.
- Calcified pulmonary granuloma, RLL. No further work up needed.
- Hypertension
- Hyperlipidemia
Critical Care time 65 mins -- The patient is admitted for acute critical illness for the treatment of vital organ failure and/or prevention of further life-threatening conditions. Total care includes time spent in review of history, physical exam,
medications, hemodynamic/ventilator parameters, laboratory data, imaging and discussion with house staff, pharmacy, respiratory therapy, thermostat repairer, and nursing
Data:
ECHO 08/2025: 1. Normal left ventricular size and function. LVEF is 55% by volumetric assessment.
2. Right ventricular size and systolic function are within normal limits.
3. Indexed left atrial volume is mildly abnormal (35-41 ml/m2).
4. Mild mitral valve regurgitation.
5. Trace tricuspid regurgitation. Estimated pulmonary artery pressure of 26 mmHg assuming a right atrial pressure of 3 mmHg.
6. There are no prior studies available for comparison.
LHC 08/2025: 1. Multivessel coronary artery disease involving the left main.
2. LVEDP [address] Chest 08/2025: Mild linear bands of opacity are demonstrated in the lung bases, and to a lesser degree in the medial segment of the right middle lobe and lingula. Scarring versus atelectasis. No evidence of pneumonia. Calcified granuloma in the
superior segment of the right lower lobe.
--- NOTE | 2025-08-07 08:00 | PTCARENOTE ---
Resumed care of patient from prev RN. Resting in bed at time of assessment. NSR on the monitor. 8L midflow. 99%. repeat ABG sent. will wean o2 as tolerated. CTx3. orders to d/c L pleural today. draining serosang. no air leak/crepitus. IS 1250. Lungs
diminished but clear. VSS on insulin and cardene. will give AM meds and attempt to wean. Pulses palpable. generalized edema. Poor appetite. kramer draining clear yellow. R IJ cordis, L radial A line, PIV x1. no pain reported at this time. will
continue to monitor.
[2025-08-07 08:32] LABS: B.E. -1.7 mmol/L; HCO3 21.7 mmol/L (21-28); O2 Saturation % 97.4 % (94-98); PCO2 32 mmHg (35-48); PO2 80 mmHg (83-108); Potassium 3.6 mMOL/L (3.5-5.1)
[2025-08-07 08:32] LABS: Glucose - Point of Care 109 mg/dl (70-99)
[2025-08-07 08:34] LABS: O2 Therapy 2L
--- NOTE | 2025-08-07 09:28 | W.PN.ANS.POP ---
Anesthesia Post Operative
- Anesthesia Post Op Note
Vital Signs Stable-See Nursing Note: Yes
Airway Patent: Yes
Adequate Pain Control: Yes
Change in Mental Status: No
Current Postoperative Nausea & Vomiting: No
Anesthesia Complications: No
General Anesthetic Recall: No
Unplanned Admission: No
Post Op Hydration Adequate: Yes
--- NOTE | 2025-08-07 09:48 | W.PN.CT ---
Today's Communication / Plan
-
-pod #1
-no complaints, no significant issues overnight
-pO2 was 69 this am- increased O2 to 8L midflow with improvement
-got 500 LR total overnight
-gave bicarb for metabolic acidosis this am
-suspect acute postop pericarditis/+ rub
-CI 2.68, CO 4.74, SVR 1096. Drips: Cardene 7.5, Insulin
-CT outputs: 2 meds 200/235, L pleur 120/130 in 12/24 hrs
-deline
-d/c insulin
-d/c Muñoz
-monitor for DT
-continue current meds
-encourage IS, OOB
Assessment / Plan
-
- Multivessel CAD with NSTEMI- s/p CABG x3 (In situ RIZO to LAD, Ao to RSVG to ramus intermedius, Ao to RSVG to OM1); LAAE with [address] Wolfe on 08/06/25, pod #1
- Intraop BRITTNI: Preop BRITTNI shows normal LV function without significant regional wall motion abnormalities, EF 55% and mild MR. Postoperatively BRITTNI is stable again showing no regional wall motion abnormalities.
- Hypertension
- Hyperlipidemia
- BPH
- nonsmoker
- EtOH 6d/week (wine)
- Acute postop blood loss anemia - stable, s/p 500 cc Cell Saver
- Acute postop thrombocytopenia
- Acute postop atelectasis/ pulmonary insufficiency
- Suspected acute postop pericarditis/+ rub
- Acute postop metabolic acidosis with compensation
- Acute postop hypovolemia with subsequent hypervolemia
Discussed patient care with: Nursing and Care Team
Subjective
-
Date of Service: August 07, 2025
Objective Data
-
Lab Results
08/07/25 03:33
08/07/25 03:33
PT 17.4 Sec (11.4-14.6) H 08/06/25 17:37
INR 1.40 08/06/25 17:37
APTT 25.5 Sec (23.4-35.0) 08/06/25 17:37
Vital Signs
Vital Signs
Temp Pulse Resp BP Pulse Ox
100.3 F 94 21 98/67 94
08/07/25 08:00 08/07/25 09:20 08/07/25 09:20 08/07/25 09:00 08/07/25 09:20
CT Intake/Output/Weight
08/06/25 08/07/25 08/07/25
18:59 06:59 18:59
Intake Total 29.3 / 503.0 453.2 / 503.0 41.5 / 41.5
Output Total 85 / 1310 1115 / 1310 175 / 175
Balance -55.7 / -807.0 -661.8 / -807.0 -133.5 / -133.5
SaO2: 94
Physical Exam
-
General: Awake and AOx3
Cardiovascular: Regular rate & rhythm, No Murmurs and Rub
Respiratory: Decreased Breath Sounds
Sternum: Stable
Incision: Clean, Dry and Intact
Extremities: No Edema (2+ DPs b/l)
Abdomen: soft, nontender, nondistended, + decreased bowel sounds
Data Reviewed
-
Lab Results: Results Reviewed
Medications: Active Meds Reviewed
Chest X-Ray: Report Reviewed and Image Reviewed
ECG: Report Reviewed and Image Reviewed
[2025-08-07] MEDS: PROTONIX 40 MG PO (10:04)
[2025-08-07] MEDS: LOPRESSOR 12.5 MG PO ×2 (10:04→19:25)
[2025-08-07] MEDS: PLAVIX 75 MG PO (10:05)
[2025-08-07] MEDS: MAGNESIUM OXIDE 400 MG PO ×2 (10:05→19:25)
[2025-08-07] MEDS: NEURONTIN 100 MG PO ×3 (10:05→21:15)
[2025-08-07] MEDS: LIDOCAINE 4% PATCH 1 PATCH TOPICAL (10:05)
[2025-08-07] MEDS: LOW STRENGTH ASPIRIN 81 MG PO (10:06)
[2025-08-07] MEDS: BACTROBAN 2% OINTMENT 1 APPLIC NASAL ×2 (10:06→19:26)
[2025-08-07] MEDS: SENOKOT PO (10:07)
[2025-08-07] MEDS: PACERONE 200 MG PO ×3 (10:07→21:15)
[2025-08-07] MEDS: TORADOL 15 MG IV (10:08)
[2025-08-07] MEDS: COLCHICINE 0.6 MG PO (10:09)
[2025-08-07 10:37] LABS: Glucose - Point of Care 114 mg/dl (70-99)
--- NOTE | 2025-08-07 12:05 | PTCARENOTE ---
L pleural CT d/c'd without issue. will continue to monitor.
[2025-08-07] MEDS: PROSCAR 5 MG PO (12:25)
[2025-08-07 13:38] LABS: Glucose - Point of Care 177 mg/dl (70-99)
[2025-08-07] MEDS: FERRLECIT 110 MG IV (13:50)
--- NOTE | 2025-08-07 15:02 | PTCARENOTE ---
proscar dose given and kramer d/c'd as ordered. DTV. no additional changes in assessment.
[2025-08-07 16:55] LABS: Glucose - Point of Care 122 mg/dl (70-99)
[2025-08-07] MEDS: NSS IV (16:58)
[2025-08-07] MEDS: CRESTOR 20 MG PO (17:06)
[2025-08-07] MEDS: SENOKOT 8.6 MG PO (19:25)
[2025-08-07] MEDS: REMOVE LIDOCAINE PATCH 1 PATCH REMOVE (19:29)
--- NOTE | 2025-08-07 20:00 | PTCARENOTE ---
Assumed care of patient at 1900. Patient found oob in chair at time of assessment. Patient is AOx4, follows commands appropriately, moves all extremities. Lung sounds are diminished in the bases, respirations are shallow, saO2 94% on 2L via NC.
Heart sounds are audible, there is a rub present on auscultation, patient is ST on the monitor, normal palpable pulses and trace generalized anasarca. Patient has active BS in all four quadrants and is voiding in urinal. There is a sternal incision,
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 Patient has R IJ cordis and L hand PIV. VSS. Call rice within reach.
[2025-08-08] VITALS (7 sets, daily range): BP systolic 105–138; BP diastolic 71–85; BMI 23.5
--- NOTE | 2025-08-08 | PTCARENOTE ---
Patient reassessed. VSS. SR on the color television console monitor. Call rice within reach.
[2025-08-08 04:54] LABS: Hematocrit 31.5 % (39.0-52.0); Hemoglobin 10.8 g/dL (13.0-18.0); Mean Corp Hgb Conc. 34.3 g/dL (33.0-37.0); Mean Corpuscular Volume 91.6 fL (80.0-94.0); Platelet Count 139 10^3/uL (130-400); Red Cell Dist. Width 12.6 % (11.5-14.5)
--- NOTE | 2025-08-08 04:54 | PTCARENOTE ---
Patient reassessed. Remains SR on the monitor. AM labs obtained. AM hygiene care provided. Call rice within reach.
[2025-08-08] MEDS: TYLENOL 975 MG PO ×3 (05:02→21:27)
[2025-08-08 05:16] LABS: Blood Urea Nitrogen 22 mg/dl (9-20); Calcium 7.9 mg/dl (8.4-10.2); Carbon Dioxide 28 mmol/L (22-30); Chloride 106 mmol/L (98-107); Estimated Creatinine Clearance 72 ml/min; Glucose 135 mg/dl (70-99); Magnesium 2.2 mg/dl (1.6-2.3); Potassium 4.1 mmol/L (3.5-5.1); Sodium 135 mmol/L (135-145); eGFR > 60.00
--- NOTE | 2025-08-08 05:31 | W.PN.CT ---
Addendum entered and electronically signed by Sourav Fernandez MD 08/08/25 08:57:
I saw and examined the patient.
The PA's note was reviewed and I agree with the note.
Comment:
Looks comfortable, feels better once left pleural drain was removed. DC mediastinal drains today. Continue aspirin and Plavix. Continue pericarditis treatment.
Original Note:
Today's Communication / Plan
-
-pod #2
-no complaints, no significant issues overnight
-suspect acute postop pericarditis/+ rub, toradol/colchicine started
-CT outputs: 2 meds 70/275 cc out in 12/24 hrs, L pleur DCd
-monitor for DT
-continue current meds
-encourage IS, OOB
Assessment / Plan
-
- Multivessel CAD with NSTEMI- s/p CABG x3 (In situ RIZO to LAD, Ao to RSVG to ramus intermedius, Ao to RSVG to OM1); LAAE with [address] Wolfe on 08/06/25, pod #2
- Intraop BRITTNI: Preop BRITTNI shows normal LV function without significant regional wall motion abnormalities, EF 55% and mild MR. Postoperatively BRITTNI is stable again showing no regional wall motion abnormalities.
- Hypertension
- Hyperlipidemia
- BPH
- nonsmoker
- EtOH 6d/week (wine)
- Acute postop blood loss anemia - stable, s/p 500 cc Cell Saver
- Acute postop thrombocytopenia
- Acute postop atelectasis/ pulmonary insufficiency
- Suspected acute postop pericarditis/+ rub
- Acute postop metabolic acidosis with compensation
- Acute postop hypovolemia with subsequent hypervolemia
Subjective
-
Date of Service: August 08, 2025
Objective Data
-
Lab Results
08/08/25 04:46
08/08/25 04:46
PT 17.4 Sec (11.4-14.6) H 08/06/25 17:37
INR 1.40 08/06/25 17:37
APTT 25.5 Sec (23.4-35.0) 08/06/25 17:37
Vital Signs
Vital Signs
Temp Pulse Resp BP Pulse Ox
98.2 F 89 18 123/71 94
08/08/25 04:00 08/08/25 04:45 08/08/25 04:00 08/08/25 04:00 08/08/25 04:45
CT Intake/Output/Weight
08/07/25 08/07/25 08/08/25
06:59 18:59 06:59
Intake Total 453.2 / 503.0 105.9 / 215.9 110 / 215.9
Output Total 1115 / 1310 735 / 1255 520 / 1255
Balance -661.8 / -807.0 -629.1 / -1039.1 -410 / -1039.1
SaO2: 94
Physical Exam
-
General: Awake and Oriented
Cardiovascular: Regular rate & rhythm, No Murmurs and Rub
Respiratory: Clear and Equal
Sternum: Stable
Incision: Clean, Dry and Intact
Extremities: No Edema
Data Reviewed
-
Lab Results: Results Reviewed
Medications: Active Meds Reviewed
Chest X-Ray: Report Reviewed
ECG: Report Reviewed
--- NOTE | 2025-08-08 08:00 | PTCARENOTE ---
Resumed care of patient from prev RN. OOB in the chair at time of assessment. NSR on the monitor HR 80s. 2L nc. 98%. will wean o2 as tolerated. CTx2. orders to d/c meds today. IS 1250. Lungs diminished.VSS Pulses palpable. generalized +1 edema. tea
colored urine in urinal. R IJ cordis PIV x1 patent.. no pain reported at this time. will continue to monitor.
[2025-08-08] MEDS: PROTONIX 40 MG PO (08:23)
[2025-08-08] MEDS: LIDOCAINE 4% PATCH 1 PATCH TOPICAL (08:23)
[2025-08-08] MEDS: LOPRESSOR 12.5 MG PO (08:23)
[2025-08-08] MEDS: PACERONE 200 MG PO ×3 (08:24→21:27)
[2025-08-08] MEDS: MAGNESIUM OXIDE 400 MG PO ×2 (08:24→21:27)
[2025-08-08] MEDS: PLAVIX 75 MG PO (08:24)
[2025-08-08] MEDS: COLCHICINE 0.6 MG PO (08:24)
[2025-08-08] MEDS: PROSCAR 5 MG PO (08:25)
[2025-08-08] MEDS: SENOKOT 8.6 MG PO ×2 (08:25→21:27)
[2025-08-08] MEDS: BACTROBAN 2% OINTMENT 1 APPLIC NASAL ×2 (08:25→21:28)
[2025-08-08] MEDS: NEURONTIN 100 MG PO ×3 (08:25→21:27)
[2025-08-08] MEDS: LOW STRENGTH ASPIRIN 81 MG PO (08:25)
--- NOTE | 2025-08-08 12:00 | PTCARENOTE ---
Meds x2 d/c'd without issue. will continue to monitor.
[2025-08-08] MEDS: FERRLECIT 110 MG IV (12:55)
[2025-08-08] MEDS: CRESTOR 20 MG PO (16:25)
[2025-08-08] MEDS: NSS IV (17:42)
[2025-08-08] MEDS: ROXICODONE 5 MG PO (21:27)
[2025-08-08] MEDS: LOPRESSOR 25 MG PO (21:28)
[2025-08-08] MEDS: REMOVE LIDOCAINE PATCH 1 PATCH REMOVE (21:28)
--- NOTE | 2025-08-08 21:45 | PTCARENOTE ---
Assumed care of pt from daysjocelyn RN. Walking rounds completed. Pt resting in chair. AAOx3. Appropriate. SR on the tele monitor. Occasionally sinus tach. HR 80-100s. +Rub. BP stable. B/L radial pulses palpable, B/L DP pulses weak on palpation. Trace
generalized edema. Pt on RA. POX 93%. Breath sounds diminished in B/L bases. Deep breathing and IS encouraged. Abdomen soft/nontender. +BSx4. Pt voiding w/o issue. All surgical sites stable. CT dressing C/D/I. Right IJ cordis and left PIV x1 intact.
Pt assisted from the chair to the bed w/ minimal assistance needed. See MAR for pain medication administration. See worklist for full nursing assessment and interventions. Call rice within reach.
[2025-08-08] MEDS: NSS 500 IV (23:26)
[2025-08-09] VITALS (14 sets, daily range): BP systolic 99–151; BP diastolic 68–86; PULSE 74; O2SAT 95–99; BMI 23.1
--- NOTE | 2025-08-09 | PTCARENOTE ---
No acute changes in assessment. Pt SR on the tele monitor. HR 80s. BP stable. Pt reports pain under control at this time. Voiding as needed. Call rice within reach.
--- NOTE | 2025-08-09 03:09 | PTCARENOTE ---
No changes in assessment. SR on the tele monitor. HR 70-80s. BP stable. 92% on RA. Labs drawn and sent. Denies pain at this time. Call rice within reach.
[2025-08-09 03:31] LABS: Hematocrit 29.2 % (39.0-52.0); Hemoglobin 9.9 g/dL (13.0-18.0); Mean Corp Hgb Conc. 33.9 g/dL (33.0-37.0); Mean Corpuscular Volume 92.4 fL (80.0-94.0); Platelet Count 139 10^3/uL (130-400); Red Cell Dist. Width 13.0 % (11.5-14.5)
[2025-08-09 03:59] LABS: Blood Urea Nitrogen 16 mg/dl (9-20); Calcium 7.7 mg/dl (8.4-10.2); Carbon Dioxide 28 mmol/L (22-30); Chloride 108 mmol/L (98-107); Estimated Creatinine Clearance 81 ml/min; Glucose 114 mg/dl (70-99); Magnesium 2.3 mg/dl (1.6-2.3); Potassium 4.1 mmol/L (3.5-5.1); Sodium 137 mmol/L (135-145); eGFR > 60.00
--- NOTE | 2025-08-09 05:32 | W.PN.CT ---
Today's Communication / Plan
-
-pod #3
-no complaints, no significant issues overnight
-suspect acute postop pericarditis on EKG/+ rub, Toradol x1 given, colchicine started
-CTs DCd
-monitor for DT
-continue rosuvastatin, amio, asa, Plavix, IV Iron, PPI, colchicine, finasteride, metoprolol 25 mg
-encourage IS, OOB
Assessment / Plan
-
- Multivessel CAD with NSTEMI- s/p CABG x3 (In situ RIZO to LAD, Ao to RSVG to ramus intermedius, Ao to RSVG to OM1); LAAE with [address] Wolfe on 08/06/25, pod #3
- Intraop BRITTNI: Preop BRITTNI shows normal LV function without significant regional wall motion abnormalities, EF 55% and mild MR. Postoperatively BRITTNI is stable again showing no regional wall motion abnormalities.
- Hypertension
- Hyperlipidemia
- BPH
- nonsmoker
- EtOH 6d/week (wine)
- Acute postop blood loss anemia - stable, s/p 500 cc Cell Saver
- Acute postop thrombocytopenia
- Acute postop atelectasis/ pulmonary insufficiency
- Suspected acute postop pericarditis/+ rub
- Acute postop metabolic acidosis with compensation
- Acute postop hypovolemia with subsequent hypervolemia
Subjective
-
Date of Service: August 09, 2025
Objective Data
-
Lab Results
08/09/25 02:54
08/09/25 02:54
PT 17.4 Sec (11.4-14.6) H 08/06/25 17:37
INR 1.40 08/06/25 17:37
APTT 25.5 Sec (23.4-35.0) 08/06/25 17:37
Vital Signs
Vital Signs
Temp Pulse Resp BP Pulse Ox
98.3 F 81 18 106/69 92
08/09/25 02:47 08/09/25 05:00 08/09/25 02:47 08/09/25 02:47 08/09/25 02:47
CT Intake/Output/Weight
08/08/25 08/08/25 08/09/25
06:59 18:59 06:59
Intake Total 110 / 215.9 150 / 240 90 / 240
Output Total 550 / 1285 350 / 1000 650 / 1000
Balance -440 / -1069.1 -200 / -760 -560 / -760
SaO2: 92
Physical Exam
-
General: Awake, Oriented and AOx3
Cardiovascular: Regular rate & rhythm, No Murmurs and Rub
Respiratory: Clear and Equal
Sternum: Stable
Incision: Clean, Dry and Intact
Extremities: No Edema and No Erythema
Data Reviewed
-
Lab Results: Results Reviewed
Medications: Active Meds Reviewed
Chest X-Ray: Report Reviewed
ECG: Report Reviewed and Image Reviewed
[2025-08-09] MEDS: TYLENOL 975 MG PO ×3 (06:14→22:27)
--- NOTE | 2025-08-09 08:00 | PTCARENOTE ---
Assumed care of patient. Walking rounds completed with previous RN. Pt assessed while he was sitting in the chair. Pt alert and oriented x4. Denies pain, shortness of breath, and nausea. WEISS with equal strength throughout. Independent in the room
and travis. NSR on tele with rates in the 70s. BP 110/73. Bilateral radial and DP pulses palpable. No edema noted. +Rub. POX 93% on RA. Lungs diminished in the bases. IS encouraged-1000ml achieved. No cough noted. Abdomen soft, nontender. +BS pt
reports passing gas. Due to void for this RN, pt reports no issues. 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 Old chest tube dressing CDI. Right groin puncture site approximated with skin glue, [place]. Right SVG harvest site approximated with
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 Right IJ cordis intact. Left hand 20g PIV intact. See MAR for medication administration. See worklist for complete nursing assessment. Plan of care reviewed and patient in agreement.
[2025-08-09] MEDS: BACTROBAN 2% OINTMENT 1 APPLIC NASAL ×2 (08:02→20:26)
[2025-08-09] MEDS: LIDOCAINE 4% PATCH 1 PATCH TOPICAL (08:02)
[2025-08-09] MEDS: PROSCAR 5 MG PO (08:03)
[2025-08-09] MEDS: LOW STRENGTH ASPIRIN 81 MG PO (08:03)
[2025-08-09] MEDS: PROTONIX 40 MG PO (08:03)
[2025-08-09] MEDS: PLAVIX 75 MG PO (08:03)
[2025-08-09] MEDS: COLCHICINE 0.6 MG PO (08:03)
[2025-08-09] MEDS: MAGNESIUM OXIDE 400 MG PO ×2 (08:03→20:26)
[2025-08-09] MEDS: MILK OF MAGNESIA 30 ML PO (08:03)
[2025-08-09] MEDS: SENOKOT 8.6 MG PO (08:03)
[2025-08-09] MEDS: NEURONTIN 100 MG PO ×3 (08:03→22:28)
[2025-08-09] MEDS: PACERONE 200 MG PO ×4 (08:03→22:27)
[2025-08-09] MEDS: LOPRESSOR 25 MG PO (08:04)
[2025-08-09 08:30] LABS: B.E. - POC -3.2 mmol/L; Glucose - POC 84 mg/dl (70-99); HCO3 - POC 22 mmol/L (21-28); Hematocrit - POC 32 % PCV (42-52); Hemodilution- POC Yes; Hemoglobin Calculated - POC 10.9; Ionized Calcium - POC 1.13 mmol/L (1.15-1.33); Lactate - POC < 0.30 mmol/L (0.36-0.75); O2 Saturation %Calculated-POC 100.0 % (94-98); PCO2 - POC 41 mmHg (35-48); PO2 - POC 412 mmHg (83-108); Potassium - POC 3.6 mmol/L (3.5-5.1); Sodium - POC 141 mmol/L (136-145); Specimen Type - POC Arterial; pH - POC 7.34 (7.35-7.45)
[2025-08-09 08:30] LABS: B.E. - POC -5.2 mmol/L; Glucose - POC 133 mg/dl (70-99); HCO3 - POC 20 mmol/L (21-28); Hematocrit - POC 29 % PCV (42-52); Hemodilution- POC Yes; Hemoglobin Calculated - POC 9.9; Ionized Calcium - POC 1.09 mmol/L (1.15-1.33); Lactate - POC < 0.30 mmol/L (0.36-0.75); O2 Saturation %Calculated-POC 100.0 % (94-98); PCO2 - POC 37 mmHg (35-48); PO2 - POC 389 mmHg (83-108); POC Comment POST; Potassium - POC 3.7 mmol/L (3.5-5.1); Sodium - POC 140 mmol/L (136-145); Specimen Type - POC Arterial; pH - POC 7.34 (7.35-7.45)
--- NOTE | 2025-08-09 08:48 | W.PN.CARDCBS ---
Today's Communication / Plan
-
Supportive postop care
Increase activity; cardiac rehab
Impression / Plan
-
PCP: Dr. Juice Cardenas
Card: Dr. Steven Delacruz [facility]
Impression:
Admitted with chest pain and elevated troponin 08/03/2025
NSTEMI
MV CAD including L main disease 08/04/25
HTN
Hyperlipidemia
FH CAD
Echo 08/04/2025: EF 55%, mild MR, trace TR, PAP 26 mmHg
Plan:
NSTEMI with peak troponin of 2.3 s/p cardiac catheterization 08/04/2025 which revealed multivessel CAD including left main disease s/p Coronary artery bypass grafting x 3 (In situ RIZO to LAD, Ao to RSVG to ramus intermedius, Ao to RSVG to OM1) and
Left atrial appendage ligation using [address] Lares 08/06/25
- Patient is hemodynamically stable all drips. Chest tubes removed.
- Post op pericarditis with rub that has improved following removal of chest tubes. Currently on colchicine.
-Continue cardiac medications: Aspirin 81 mg daily, Plavix 75 mg daily given presenting non-STEMI. Continue rosuvastatin 20 mg nightly, Lopressor 25 mg every 12. Patient had been on long-acting carvedilol 20 mg daily prior to admission.
-Continue to monitor telemetry; A-fib prophylaxis with oral amiodarone per surgical protocol.
-IV Lasix 20 mg provided earlier today by CT surgery service.
-Preop hemoglobin 13.1, today 9.9. Continue oral/IV iron and monitor hemoglobin. Postop thrombocytopenia resolved. Platelets today 139
- Intraoperative BRITTNI with normal LV function with no significant regional wall motion abnormalities and EF 55%. Mild MR. Postoperative BRITTNI stable.
-Supportive postoperative care
-Increase activity. I-S encouraged
- Will follow with you
PREADMIT DATA:
-Patient came to the ER last evening with chest pain that started during his exercise and cardiology is consulted for elevated troponin. Patient says that he follows with Dr. Steven Delacruz at [facility] and sees him once a year for a history of
abnormal stress test due to arrhythmia in the past that led to cardiac catheterization in approximately 2020 and showed nonobstructive CAD. Since then he sees his x ray technologist annually and gets a an echo every 1 to 2 years to follow-up on possible
LVH versus possible aortic valve disease. Patient last saw his x ray technologist a year ago and actually has an appointment coming up in the next 1 to 2 weeks. Patient goes to a high intensity yoga session for exercise and has completed 400 sessions
without ever experiencing the symptoms that he had last night, he said that 45 minutes into the hour-long yoga class he started with a left-sided chest pain that persisted even after the class was done and he was driving home. Initial troponin was
elevated at 0.058, but ECG without acute ischemic changes. His troponin is up to 1.72 this morning and he has ongoing 1 out of 10 chest discomfort. Patient is on heparin gtt and was given aspirin. Patient was not given NTG SL due to his use of
tadalafil.
Progress Note - Corporate Associate
Subjective
Date of Service: August 09, 2025
Seen and examined sitting out of bed to chair. Patient is without complaints. Denies chest pain or pressure, shortness of breath or dizziness. Voiding well. Flatus but no BM yet
Objective
Labs:
08/09/25 02:54
08/09/25 02:54
Labs
Hgb 9.9 g/dL (13.0-18.0) L 08/09/25 02:54
Hct 29.2 % (39.0-52.0) L 08/09/25 02:54
Plt Count 139 10^3/uL (130-400) 08/09/25 02:54
PT 17.4 Sec (11.4-14.6) H 08/06/25 17:37
INR 1.40 08/06/25 17:37
APTT 25.5 Sec (23.4-35.0) 08/06/25 17:37
Sodium 137 mmol/L (135-145) 08/09/25 02:54
Potassium 4.1 mmol/L (3.5-5.1) 08/09/25 02:54
BUN 16 mg/dl (9-20) 08/09/25 02:54
Creatinine 0.8 mg/dL (0.7-1.3) 08/09/25 02:54
Glucose 114 mg/dl (70-99) H 08/09/25 02:54
Vital Signs and I&O:
Vital Signs
Temp Pulse Resp BP Pulse Ox
98.3 F 86 18 136/86 92
08/09/25 02:47 08/09/25 06:30 08/09/25 02:47 08/09/25 06:26 08/09/25 05:34
Vital Signs
Temp Pulse Resp BP Pulse Ox
98.3 F 86 18 136/86 92
08/09/25 02:47 08/09/25 06:30 08/09/25 02:47 08/09/25 06:26 08/09/25 05:34
Intake & Output
08/07/25 08/08/25 08/09/25 08/10/25
06:59 06:59 06:59 06:59
Intake Total 482.5 / 503.0 215.9 / 215.9 260 / 260
Output Total 1200 / 1310 1285 / 1285 1200 / 1200
Balance -717.5 / -807.0 -1069.1 / -1069.1 -940 / -940
Physical Exam
Physical Exam
General: NAD. Awake alert and oriented x 3. Room air
Neck: +cortis
Heart: Regular, positive S1/S2,No murmur
Lungs: CTA b/l
Abd: Positive BS, NT
Ext: No edema
Neuro: nonfocal
--- NOTE | 2025-08-09 10:17 | CM ---
Reviewed chart. Met with Mr. Shetty to review discharge plans. He states he is felling well and maybe able to go home soon. We reviewed a home visit by the Transitional Care Nurse. He is agreeable to a home visit. He states he has been
ambulating and did the stairs today. Prior to admission he resides with his spouse on a two story home with two steps to enter the home from the front and four steps from the garage. He has a full flight of steps to get to bedroom/full bathroom. He
has a powder room on the first floor. Prior to admission he was independent with ambulation and adls. He does not have any DME in the home. He has a prescription plan. His spouse works outside the home. Medical work-up in progress. The discharge
plan is to return home with his spouse and a home visit by the Transitional Care Nurse when medically stable.
[2025-08-09] MEDS: LASIX 20 MG IV (10:32)
[2025-08-09] MEDS: KCL 10 MEQ PO (10:32)
--- NOTE | 2025-08-09 11:54 | PTCARENOTE ---
Pt reassessed. No acute changes from previous RN. Pt ambulating in the travis independently.
[2025-08-09] MEDS: FERRLECIT 110 MG IV (13:21)
--- NOTE | 2025-08-09 15:30 | PTCARENOTE ---
Pt reassessed. VSS. Right IJ cordis d/c per order. Hemostasis achieved. Pt independent in the room.
[2025-08-09] MEDS: CRESTOR 20 MG PO (17:46)
--- NOTE | 2025-08-09 18:00 | PTCARENOTE ---
Pt showered, tolerated.
--- NOTE | 2025-08-09 18:09 | W.DCSUMMARY ---
Discharge Summary
Discharge Data
Date of Admission: 08/03/25
Date of Discharge: 08/10/25
-
Pending Results: No
Hospital Course
Primary care physician: Dr. Juice Cardenas
Outpatient hardscape foreman: Dr. Steven Delacruz
Inpatient consultants: [facility], Molding Associate/Pulmonary (Dr. Wen Davis)
Procedures:
1. Off-Pump CABG x 3, RIZO-LAD, SVG-Ramus, SVG-OM1 with eLAA (40 mm AtriaClip) with Dr. Sandy Wolfe on 08/06/25
Primary Diagnosis:
1. Multivessel CAD with NSTEMI
Secondary Diagnoses:
1. Acute postop blood loss anemia -stable, status post 500 cc Cell Saver
2. Acute postop thrombocytopenia
3. Acute postop atelectasis/pulmonary insufficiency
4. Suspected acute postop pericarditis/pericardial rub
5. Acute postop metabolic acidosis with compensation
6. Acute postop hypovolemia with subsequent hypervolemia
7. Hypertension
8. Hyperlipidemia
9. BPH
10. EtOH misuse (6d/week, wine)
HPI: Mr. Shetty is a 69-year-old male who presented with NSTEMI from progressive multivessel CAD. Prior to his presentation, his last cardiac catheterization was in 2020 at [place] where he was noted to have nonobstructive CAD in which was opted to
be treated medically. On 08/03/25, he presented to [facility] ED due to left-sided chest pain following a yoga class. He ruled in for NSTEMI with peak troponin of 2.35 with subsequent cardiology consultation. He underwent a left heart cath showed
multivessel CAD in which he was referred for surgical revascularization given significant left main disease at the trifurcation site. Cardiothoracic surgery was consulted in which he went for CABG x 3 on 08/06/[address] Sandy Wolfe.
Hospital course: Mr. Prabhakar corbin presented on 08/03/2025 with complaints of left-sided chest pain following a yoga class. He ruled in for NSTEMI with peak troponin of 2.35. Cardiology was consulted. TTE showed preserved EF. Left heart cath revealed
multivessel CAD in which CT surgery was consulted. On 08/06/2025 patient underwent CABG x [address] Sandy Wolfe. Please see surgeons complete report for details regarding surgery. IntraOp BRITTNI showed preop normal LV function without significant
RWMA, EF 55% with mild MR; postoperative, stable with no RWMA. In progressive fashion, chest tubes, and vasoactive medications were weaned off. On postop day 1, EKG showed pericarditis with subsequent pericardial rub on physical exam in which
patient was treated with IV Toradol x 1 and initiated on colchicine. Patient will remain on colchicine 0.6 mg daily for 30 days due to postop pericarditis. Beta-scot was reintroduced with metoprolol, he was discharged home with Toprol XL 50 mg
daily. Aspirin 81 mg daily and Plavix 75 mg daily in setting of CABG and NSTEMI. Aspirin should be continued indefinitely. Plavix should be continued for 1 year in setting of NSTEMI. On postoperative day 4, patient was tolerating his diet,
ambulating in hallway, and performing ADLs with minimal assistance. His weight was 65.7 kg compared to preoperative weight of 67 kg. He was not sent home with diuretic therapy due to appearing euvolemic. A routine, 2-V chest x-ray showed small
left pleural effusion and atelectasis. He was recommended to go home with incentive spirometer and Acapella to continue to use to prevent postoperative pneumonia. His pain was well-controlled with low-dose Roxicodone and Tylenol 650 mg PRN.
Gabapentin 100 mg TID x 7 days was continued for postoperative neuropathic pain and left upper extremity paraesthesia. He was stable for discharge home with plan to be followed and 2 to 3 days with the transitional care nursing team. He will
follow-up with the cardiac surgery team within 4 weeks from surgery. He will follow-up with his primary hardscape foreman within 30 days. He was advised to obtain outpatient follow-up with his PCP. He was further recommended for outpatient follow-up
with pulmonary with PFTs and 6-minute walk test due to minimal bibasilar pulmonary scarring found within preop diagnostic testing.
Home medication changes:
- See medication list provided below.
Discharge Plan
-
Patient Disposition: Home (Routine Discharge)
Discharge Diagnosis/Procedures: Multi-vessel Coronary Artery Disease with NSTEMI
s/p CABG x 3 (RIZO-LAD, SVG-Ramus, SVG to OM1) with eLAA (40 mm Atrial Clip) by Dr. Sandy Wolfe on 08/06/25
Condition: Good
Diet: Low Fat, Low Cholesterol and 2 Gram Sodium
Activity: No strenuous activity
Driving Restrictions: Not until seen by your Dr
Bathing Restrictions: OK to Shower
Other Services: Cardiac Rehab
Wound Care: Shower daily with soap and water. No lotions, creams, or powders on procedural sites. Keep wounds open to air.
Specialty Instructions: Weigh Daily- Call MD for wt gain/loss 3 lbs overnight/5 lbs in 1 week
Activity Restrictions/Additional Instructions:
ACTIVITY:
-No strenuous activity: no heavy lifting, pushing, pulling anything over 15 pounds for one month
-Continue to use stairs as tolerated
DRIVING RESTRICTIONS:
-No driving for one month or until approved by your surgeon
WOUND CARE:
-Shower daily. Use soap & water.
-No lotions, creams or powders on incision area.
DIET:
-continue a low fat/low cholesterol diet.
-If you are diabetic, continue carb controlled diet.
CARDIAC REHAB:
-Please make appointment to start in 5-6 weeks with your local hospital program. (See Cardiac Rehabilitation Discharge Booklet).
SPECIALTY INSTRUCTIONS:
-Weigh yourself daily. Call your physician for any weight gain/loss of 3 lbs overnight or 5 lbs in one week.
-REPORT any clicking noise or uneven appearance of your sternum to your surgeon immediately.
-If you smoke, you are instructed to quit. The [place] smoking hotline phone number is [phone]
Referrals:
Dr. Steven Delacruz [Other] - 09/13/25 10:[address] Transitional Care Nurse [Outside] - in one to two days
Referral Note: The Cardiothoracic Transitional Care Nurse will call you to set up a visit in 1-2 days.
[facility] [Outside] - 09/20/25 8:30 am
Referral Note: Cardiac Rehab Orientation appointment is on 09/20/25 at 830 am
The Cardiac Rehab gym is located on the first floor of the [facility].
Wen Davis MD [Active, Pulmonary Medicine] - in six weeks
Referral Note: Follow-up with Pulmonary Function Test
Juice Cardenas MD [Family Provider, Family Practice] - in four to six weeks
Referral Note: Please make an appointment in four to six weeks.
Anamika Sinha CRNP [Specified Professional Personl, Cardiac Surgery] - 09/02/25 1:00 pm
Prescriptions:
New
clopidogrel 75 mg Tablet
75 mg PO DAILY Qty: 60 0RF
colchicine 0.6 mg Tablet
0.6 mg PO DAILY 26 Days Qty: 26 0RF
acetaminophen 325 mg Tablet
650 mg PO Q6HPRN PRN (Reason: mild pain,headache,temp >101F ) Qty: 0 0RF
metoprolol succinate 50 mg Tablet Extended Release 24 Hr
50 mg PO DAILY Qty: 60 0RF
sennosides [Sheryl-raul] 8.6 mg Tablet
8.6 mg PO [id number] PRN (Reason: Constipation) Qty: 0 0RF
gabapentin 100 mg Capsule
100 mg PO TID 7 Days Qty: 21 0RF
oxycodone 5 mg Tablet
2.5 - 5 mg PO Q6HPRN PRN (Reason: Moderate pain unalleviated by acetaminophen) Qty: 10 0RF
Continued
finasteride 5 mg tablet
5 mg PO DAILY
rosuvastatin 20 mg tablet
20 mg PO QPM
tadalafil 5 mg tablet
5 mg PO Q48H
aspirin 81 mg Capsule
81 mg PO DAILY
Discontinued
carvedilol phosphate 20 mg capsule, ER multiphase 24 hr
20 mg PO DAILY
Discharge Orders:
Discharge Patient (As Directed); Ordered 08/10/25
Ordered By: Mira Cordova
Care Plan Goals
Care Plan Goals:
Problem: Readiness for enhanced knowledge related to diagnosis and treatment plan
Goal: Understand your diagnosis and treatment plan needs, including medications if applicable.
Instructions: Know your diagnosis, underlying causes and treatment plan options, including medications if applicable. Consult with your health care team to learn about your diagnosis and treatment plan, including medications if applicable.
Discharge Date and Time
Print Language: BELARUSIAN
[2025-08-09] MEDS: SENOKOT PO (20:18)
[2025-08-09] MEDS: REMOVE LIDOCAINE PATCH REMOVE (20:19)
[2025-08-09] MEDS: TOPROL XL 25 MG PO (20:34)
[2025-08-09] MEDS: CALCIUM GLUCONATE 100 IV (20:35)
[2025-08-09] MEDS: LOPRESSOR PO (20:35)
--- NOTE | 2025-08-09 21:00 | PTCARENOTE ---
Patient received OOB in chair watching television. Patient A+A+Ox3. No neurological deficits noted. No c/o headache, dizziness or lightheadedness. Room air. SpO2 95%. Chest tube sites open to air. Sinus Rhythm. Heart rate 80-90's. Blood
pressure 120/72 (85). Patient with no c/o chest pain, pressure or discomfort. Normoactive bowel sounds. Voiding without difficulty. Sternal incision intact - Open to air. Right groin intact. Right lower extremity incision intact. Patient with
no c/o back or flank pain. Positive, palpable pulses. Toprol XL 25mg PO given per PA order. Amiodarone 200mg PO - Extra dose per PA order. Calcium Gluconate 2,000mg/100ml IV. Assessment as documented.
[2025-08-09] MEDS: ROXICODONE 2.5 MG PO (22:28)
[2025-08-10] VITALS (7 sets, daily range): BP systolic 115–151; BP diastolic 70–89; PULSE 81; O2SAT 96–97; BMI 22.7
--- NOTE | 2025-08-10 00:30 | PTCARENOTE ---
Patient sleeping without difficulty. Assessment as documented.
--- NOTE | 2025-08-10 03:41 | W.PN.CT ---
Today's Communication / Plan
-
Plan:
-No major issues overnight. Hemodynamically and neurologically intact
-Off all drips
-On Colchicine for suspected postop pericarditis
-Was on Coreg at home, switched to Toprol XL given low BP postop
-Cont. current meds (ASA, Plavix, Crestor, Colchicine, Toprol XL, Amiodarone)
-Will replete ca++
-F/U 2-view cxr
-Encourage use of IS
-OOB into chair into chair/Ambulate
-No temporary PW
-D/C home today
Assessment / Plan
-
- Multivessel CAD with NSTEMI- s/p CABG x3 (In situ RIZO to LAD, Ao to RSVG to ramus intermedius, Ao to RSVG to OM1); LAAE with [address] Wolfe on 08/06/25, pod #4
- Intraop BRITTNI: Preop BRITTNI shows normal LV function without significant regional wall motion abnormalities, EF 55% and mild MR. Postoperatively BRITTNI is stable again showing no regional wall motion abnormalities.
- Hypertension
- Hyperlipidemia
- BPH
- nonsmoker
- EtOH 6d/week (wine)
- Acute postop blood loss anemia - stable, s/p 500 cc Cell Saver
- Acute postop thrombocytopenia
- Acute postop atelectasis/ pulmonary insufficiency
- Suspected acute postop pericarditis/+ rub
- Acute postop metabolic acidosis with compensation
- Acute postop hypovolemia with subsequent hypervolemia
Discussed patient care with: Cardiology, Nursing, Respiratory Therapy, Pharmacy and Care Team
Subjective
-
Date of Service: August 10, 2025
Pt c/o mild incisional pain, otherwise feels well
Objective Data
-
PT 17.4 Sec (11.4-14.6) H 08/06/25 17:37
INR 1.40 08/06/25 17:37
APTT 25.5 Sec (23.4-35.0) 08/06/25 17:37
Vital Signs
Vital Signs
Temp Pulse Resp BP Pulse Ox
98.6 F 71 16 132/82 94
08/09/25 22:20 08/10/25 03:00 08/09/25 22:20 08/09/25 22:27 08/10/25 03:00
CT Intake/Output/Weight
08/09/25 08/09/25 08/10/25
06:59 18:59 06:59
Intake Total 110 / 260 250 / 490 240 / 490
Output Total 850 / 1200 1425 / 1525 100 / 1525
Balance -740 / -940 -1175 / -1035 140 / -1035
SaO2: 94 (RA)
Physical Exam
-
General: Awake, Oriented and AOx3
Cardiovascular: Regular rate & rhythm, No Murmurs and No Gallop
Respiratory: Decreased Breath Sounds (at bases, otherwise clear)
Sternum: Stable
Incision: Clean, Dry, Intact and Dressing Intact
Extremities: Edema +1 and Other (+right LE edema)
Data Reviewed
-
Lab Results: Results Reviewed
Medications: Active Meds Reviewed
Chest X-Ray: Report Reviewed and Image Reviewed
ECG: Report Reviewed and Image Reviewed
[2025-08-10 04:43] LABS: Hematocrit 28.3 % (39.0-52.0); Hemoglobin 9.9 g/dL (13.0-18.0); Mean Corp Hgb Conc. 35.0 g/dL (33.0-37.0); Mean Corpuscular Volume 91.6 fL (80.0-94.0); Platelet Count 160 10^3/uL (130-400); Red Cell Dist. Width 12.9 % (11.5-14.5)
[2025-08-10] MEDS: TYLENOL PO (05:00)
[2025-08-10 05:08] LABS: Blood Urea Nitrogen 14 mg/dl (9-20); Calcium 8.2 mg/dl (8.4-10.2); Carbon Dioxide 27 mmol/L (22-30); Chloride 106 mmol/L (98-107); Estimated Creatinine Clearance 72 ml/min; Glucose 96 mg/dl (70-99); Magnesium 2.1 mg/dl (1.6-2.3); Potassium 4.0 mmol/L (3.5-5.1); Sodium 137 mmol/L (135-145); eGFR > 60.00
[2025-08-10] MEDS: CALCIUM GLUCONATE 130 MG IV (05:36)
--- NOTE | 2025-08-10 05:45 | PTCARENOTE ---
Patient resting in bed without difficulty. Patient A+A+Ox3. No neurological deficits noted. No c/o pain or discomfort. AM labs collected and sent. Ionized Calcium 1.13 - Calcium Gluconate 3,000mg/100ml IV administered per PA order.
Assessment/Interventions as documented.
--- NOTE | 2025-08-10 07:45 | PTCARENOTE ---
Resumed care of patient. Walking rounds completed with previous RN. Pt assessed while he was sitting in the chair. Pt alert and oriented x4. Rates sternal pain 1/10, denies shortness of breath, and nausea. WEISS with equal strength throughout.
Independent in the room and travis. NSR on tele with rates in the 70s-80s. BP 126/83. Heart tones audible. Bilateral radial and DP pulses palpable. No edema noted. POX 95% on RA. Lungs diminished in the bases. IS encouraged-1500mL achieved. No cough
noted. Abdomen soft, nontender. +BS. +BM yesterday. Voiding adequate amounts of clear yellow urine. Sternal incision approximated, GUNSTOCK SPRAY UNIT ADJUSTER. Old chest tube sites GUNSTOCK SPRAY UNIT ADJUSTER. Right groin puncture site GUNSTOCK SPRAY UNIT ADJUSTER. Right SVG harvest site approximated, GUNSTOCK SPRAY UNIT ADJUSTER. Left hand 20g
PIV intact. See MAR for medication administration. See worklist for complete nursing assessment. Plan of care reviewed and patient in agreement.
[2025-08-10] MEDS: TOPROL XL 50 MG PO (07:53)
[2025-08-10] MEDS: PACERONE 200 MG PO (07:53)
[2025-08-10] MEDS: COLCHICINE 0.6 MG PO (07:53)
[2025-08-10] MEDS: PLAVIX 75 MG PO (07:53)
[2025-08-10] MEDS: FEOSOL 325 MG PO (07:53)
[2025-08-10] MEDS: LOW STRENGTH ASPIRIN 81 MG PO (07:53)
[2025-08-10] MEDS: PROSCAR 5 MG PO (07:53)
[2025-08-10] MEDS: PROTONIX 40 MG PO (07:53)
[2025-08-10] MEDS: NEURONTIN 100 MG PO (07:54)
[2025-08-10] MEDS: SENOKOT PO (07:54)
[2025-08-10] MEDS: MAGNESIUM OXIDE 400 MG PO (07:54)
[2025-08-10] MEDS: LIDOCAINE 4% PATCH TOPICAL (07:54)
[2025-08-10] MEDS: VITAMIN C 500 MG PO (07:54)
[2025-08-10] MEDS: BACTROBAN 2% OINTMENT 1 APPLIC NASAL (07:54)
[2025-08-10] MEDS: NSS IV (07:59)
--- NOTE | 2025-08-10 10:55 | CM ---
Reviewed chart. Met with Mr. Shetty to review discharge plans. He states he is feeling well and maybe able to go home soon. We reviewed a home visit by the Transitional Care Nurse. He is agreeable to home visit. He states his spouse will be
home for a couple of days to assist in his care if needed. the Transitional Care Nurse. He is agreeable to a home visit. Prior to admission he resides with his spouse on a two story home with two steps to enter the home from the front and four
steps from the garage. He has a full flight of steps to get to bedroom/full bathroom. He has a powder room on the first floor. Prior to admission he was independent with ambulation and adls. He does not have any DME in the home. He has a
prescription plan. His spouse works outside the home. Medical work-up in progress. The discharge plan is to return home with his spouse and a home visit by the Transitional Care Nurse when medically stable.
--- NOTE | 2025-08-10 11:45 | PTCARENOTE ---
Discharge order received. Pt stable prior to discharge. Pt's at bedside. All discharge instructions and medications reviewed. Pt states understanding. All questions answered. Taken via wheelchair to car.
--- NOTE | 2025-08-10 15:29 | W.PN.CARDCBS ---
Addendum entered and electronically signed by Pierre Lion MD 08/10/25 15:37:
I saw and examined the patient.
The RECORD PRESS TENDER or PA's note was reviewed and I agree with the note.
Comment: General: Well developed, well nourished in NAD.
Neck: Supple, no JVD, HJR, carotids +2 B/L, no bruits bilaterally.
Heart: Non displaced PMI, RRR, no murmurs, No S3, S4, no rubs.
Lungs: Scattered rhonchi
Sternal dressings noted
Extremities: No clubbing, cyanosis or edema bilaterally.
Neuro: Grossly nonfocal, awake, alert and oriented x3.
Stable cardiology status for discharge. Follow-up with cardiology in [place]. Discussed with CT surgery
Original Note:
Today's Communication / Plan
-
Discharged home on aspirin and Plavix
Follow-up with primary board design engineer at [facility]
Impression / Plan
-
PCP: Dr. Juice Cardenas
Card: Dr. Steven Delacruz [facility] [place]
Impression:
Admitted with chest pain and elevated troponin 08/03/2025
NSTEMI
MV CAD including L main disease 08/04/25
s/p CABG with RIZO to LAD, SVG to ramus and SVG to OM1 on 08/06/2025
s/p left atrial appendage ligation with AtriClip 08/06/2025
HTN
Hyperlipidemia
FH CAD
Echo 08/04/2025: EF 55%, mild MR, trace TR, PAP 26 mmHg
Plan:
-Patient seen prior to d/c 08/10/25
-Troponin peaked to 2.35 and patient was managed as NSTEMI this admission
-Patient with MV CAD by cardiac cath 08/04/2025 and underwent CABG with RIZO to LAD, SVG to ramus and SVG to OM1 on 08/06/2025.
-Patient was discharged to home on aspirin and Plavix given NSTEMI. He will follow-up long-term with his primary board design engineer at [facility] in [place], Dr. eDlacruz
-Patient had postoperative pericarditis and is being managed with colchicine 0.6 mg daily for the next month.
-LDL 35 in outpatient dose of rosuvastatin 20 mg daily was continued
-Outpatient dose of Coreg CR 20 mg daily was changed to Toprol XL 50 mg daily this admission
-Patient did receive amiodarone PO postop, but is not being discharged to home on amiodarone and no occurrence of atrial arrhythmia.
-Patient was given intermittent doses of Lasix IV postop, but patient is not being discharged to home on daily diuretic
-Stable for discharge to home
PREADMIT DATA:
-Patient came to the ER last evening with chest pain that started during his exercise and cardiology is consulted for elevated troponin. Patient says that he follows with Dr. Steven Delacruz at [facility] and sees him once a year for a history of
abnormal stress test due to arrhythmia in the past that led to cardiac catheterization in approximately 2020 and showed nonobstructive CAD. Since then he sees his board design engineer annually and gets a an echo every 1 to 2 years to follow-up on possible
LVH versus possible aortic valve disease. Patient last saw his board design engineer a year ago and actually has an appointment coming up in the next 1 to 2 weeks. Patient goes to a high intensity yoga session for exercise and has completed 400 sessions
without ever experiencing the symptoms that he had last night, he said that 45 minutes into the hour-long yoga class he started with a left-sided chest pain that persisted even after the class was done and he was driving home. Initial troponin was
elevated at 0.058, but ECG without acute ischemic changes. His troponin is up to 1.72 this morning and he has ongoing 1 out of 10 chest discomfort. Patient is on heparin gtt and was given aspirin. Patient was not given NTG SL due to his use of
tadalafil.
Progress Note - Non Profit Director
Subjective
Date of Service: August 10, 2025
Objective
Labs:
08/10/25 04:21
08/10/25 04:21
Labs
Hgb 9.9 g/dL (13.0-18.0) L 08/10/25 04:21
Hct 28.3 % (39.0-52.0) L 08/10/25 04:21
Plt Count 160 10^3/uL (130-400) 08/10/25 04:21
PT 17.4 Sec (11.4-14.6) H 08/06/25 17:37
INR 1.40 08/06/25 17:37
APTT 25.5 Sec (23.4-35.0) 08/06/25 17:37
Sodium 137 mmol/L (135-145) 08/10/25 04:21
Potassium 4.0 mmol/L (3.5-5.1) 08/10/25 04:21
BUN 14 mg/dl (9-20) 08/10/25 04:21
Creatinine 0.9 mg/dL (0.7-1.3) 08/10/25 04:21
Glucose 96 mg/dl (70-99) 08/10/25 04:21
Vital Signs and I&O:
Vital Signs
Temp Pulse Resp BP Pulse Ox
98.5 F 76 16 151/89 95
08/10/25 08:00 08/10/25 10:00 08/10/25 08:00 08/10/25 09:52 08/10/25 08:00
Vital Signs
Temp Pulse Resp BP Pulse Ox
98.5 F 76 16 151/89 95
08/10/25 08:00 08/10/25 10:00 08/10/25 08:00 08/10/25 09:52 08/10/25 08:00
Intake & Output
08/08/25 08/09/25 08/10/25 08/11/25
06:59 06:59 06:59 06:59
Intake Total 215.9 / 215.9 260 / 260 720 / 720 240 / 240
Output Total 1285 / 1285 1200 / 1200 1974 / 1974 150 / 150
Balance -1069.1 / -1069.1 -940 / -940 -1255 / -1255 90 / 90
Physical Exam
Physical Exam
GEN: NAD. AAOx3
LUNGS: RA. No wheeze
CV: SR on tele.
Scores
PERLA for NSTEMI
Age >/= 65: Yes
>/=3 CAD risk factors-HTN,High Chol,Fam hx CAD,DM,Smoker: Yes
Known CAD (stenosis >/=50%): Yes
ASA use in past 7 days: Yes
Severe angina (>/= 2 episodes in 24 hrs): No
EKG ST Changes >/= 0.5mm: No
Positive cardiac marker: Yes
Score: 5
Risk at 14 days-mortality, new/recurrent [place], severe ischemia: Intermediate Risk- 26% Risk at 14 days- all cause mortality, new or recurrent [place], or severe recurrent ischemia requiring urgent revascularization
== END 2025-08-10 11:58 | disposition home or self-care (01) | DRG 233 ==
LOC: CVICU 23:54
PROVIDERS: Internal Medicine; Internal Medicine Interventional Cardiology; Nurse Practitioner Adult Health; Physician Assistant Medical; Thoracic Surgery (Cardiothoracic Vascular Surgery); ADMITTING PHYSICIAN Internal Medicine; ATTENDING PHYSICIAN Student in an Organized Health Care Education/Training Program; CONSULT PHYSICIAN Internal Medicine; CONSULT PHYSICIAN Internal Medicine Cardiovascular Disease; EMERGENCY PHYSICIAN Emergency Medicine; FAMILY PHYSICIAN Family Medicine
PROC: 4A023N7 Measurement of Cardiac Sampling and Pressure, Left Heart, Percutaneous Approach (ICD-10-PCS; 2025-08-04)
PROC: B2111ZZ Fluoroscopy of Multiple Coronary Arteries using Low Osmolar Contrast (ICD-10-PCS; 2025-08-04)
PROC: 02100Z9 Bypass Coronary Artery, One Artery from Left Internal Mammary, Open Approach (ICD-10-PCS; 2025-08-06)
PROC: 02L70CK Occlusion of Left Atrial Appendage with Extraluminal Device, Open Approach (ICD-10-PCS; 2025-08-06)
PROC: 0212093 Bypass Coronary Artery, Three Arteries from Coronary Artery with Autologous Venous Tissue, Open Approach (ICD-10-PCS; 2025-08-06)
PROC: 06BP4ZZ Excision of Right Saphenous Vein, Percutaneous Endoscopic Approach (ICD-10-PCS; 2025-08-06)
PROC: B24BZZ4 Ultrasonography of Heart with Aorta, Transesophageal (ICD-10-PCS; 2025-08-06)
DX: I21.4 Non-ST elevation (NSTEMI) myocardial infarction (principal); J95.1 Acute pulmonary insufficiency following thoracic surgery; J98.11 Atelectasis; E87.20 Acidosis, unspecified; I30.8 Other forms of acute pericarditis; D62 Acute posthemorrhagic anemia; I10 Essential (primary) hypertension; N40.0 Benign prostatic hyperplasia without lower urinary tract symptoms; R20.2 Paresthesia of skin; E78.00 Pure hypercholesterolemia, unspecified; I77.819 Aortic ectasia, unspecified site; I25.110 Atherosclerotic heart disease of native coronary artery with unstable angina pectoris; J84.10 Pulmonary fibrosis, unspecified; D69.59 Other secondary thrombocytopenia; E86.1 Hypovolemia; E87.70 Fluid overload, unspecified; Z82.49 Family history of ischemic heart disease and other diseases of the circulatory system; Z79.82 Long term (current) use of aspirin
CPT/HCPCS: 71045; 71046; 71250; 80048; 80053; 80061; 81003; 81015; 82330; 82565; 82805; 82810; 82947; 82962; 83036; 83735; 84132; 84302; 84484; 84520; 85014; 85018; 85025; 85027; 85049; 85347; 85610; 85730; 86803; 86850; 86900; 86901; 86920; 87086; 93005; 93306; 93458; 93880; 94002; 96365; 99152; 99153; 99285; C1769; C1894; J2916; Q9967

== ENCOUNTER 2025-08-21 11:46 | Emergency (ER) | payer BC, SELFPAY ==
[2025-08-21 11:51] VITALS: BP 113/74
[2025-08-21 12:12] LABS: Hematocrit 40.2 % (39.0-52.0); Hemoglobin 12.9 g/dL (13.0-18.0); Mean Corp Hgb Conc. 32.1 g/dL (33.0-37.0); Mean Corpuscular Volume 95.0 fL (80.0-94.0); Nucleated Red Blood Cells % 0 % (-); Platelet Count 300 10^3/uL (130-400); Red Cell Dist. Width 13.2 % (11.5-14.5)
[2025-08-21 12:36] LABS: INR 1.08; PT 14.3 Sec (11.4-14.6)
[2025-08-21 12:40] LABS: Troponin I 0.115 ng/ml
[2025-08-21 12:41] LABS: ALT (SGPT) 20 U/L (0-50); AST (SGOT) 18 U/L (17-59); Albumin 4.2 g/dl (3.5-5.0); Alkaline Phosphatase 94 U/L (38-126); Blood Urea Nitrogen 17 mg/dl (9-20); Calcium 9.3 mg/dl (8.4-10.2); Carbon Dioxide 22 mmol/L (22-30); Chloride 108 mmol/L (98-107); Glucose 115 mg/dl (70-99); Potassium 4.7 mmol/L (3.5-5.1); Sodium 139 mmol/L (135-145); Total Protein 7.1 g/dl (6.3-8.2); eGFR > 60.00
[2025-08-21 12:56] VITALS: BP 89/77
[2025-08-21 13:00] VITALS: BP 94/65
[2025-08-21 14:00] VITALS: BP 89/67
--- NOTE | 2025-08-21 14:25 | ED.GENMED ---
History of Present Illness
General
Chief Complaint: Cardiac Symptoms
Time Seen by Provider: 08/21/25 12:58
History of Present Illness
History of Present Illness:
69-year-old male with history of CAD status post CABG x 3 performed 2 weeks ago at this hospital presents to the emergency department for evaluation of 'irregular heartbeats' occurring frequently over the past 24 hours. He wears a Fitbit and states
that this has been occurring often over the past day. He has no associated palpitations, shortness of breath, or chest pain with this. He wears his Fitbit routinely and has never noted this alarm in the past. Of note left atrial appendage
clipping was performed during the CT surgery. Currently feels well with no other complaints.
Review of Systems
Review of Systems
Allergies reviewed?: Yes
All Other Systems: ROS reviewed and negative except as documented in HPI and ROS
Phy Exam
Physical Exam
Physical Exam:
GEN: Well appearing, NAD, WDWN
HEENT: Oral mucosa moist, no scleral icterus
Cardiac: Regular rate and rhythm, no murmurs
Chest: CT surgical incisional scar is well-approximated with no dehiscence or discharge
Lung: No respiratory distress, no tachypnea
MSK: No gross deformity or injuries
Skin: Good color, no pallor or jaundice, no rashes
Neuro: AO x3, moves all extremities freely
Psych: Calm, cooperative
Course
Orders/Labs/Results
Orders:
Orders
08/21/25 11:47
Electrocardiogram (*1) Urgent
Reason for Study: Atrial Fibrillation
EKG- Treatment ONCE
08/21/25 12:03
Complete Blood Count/With Diff Urgent
Comprehensive Metabolic Panel Urgent
Prothrombin Time Urgent
Troponin I Urgent
Abnormal Lab Results
08/21/25
12:03
RBC 4.23 L 10^6/uL
(4.70-6.10)
Hgb 12.9 L g/dL
(13.0-18.0)
MCV 95.0 H fL
(80.0-94.0)
MCHC 32.1 L g/dL
(33.0-37.0)
Absolute Lymphs (auto) 1.0 L 10^3/uL
(1.2-3.4)
Neutrophils % 76.3 H %
(42.2-75.2)
Lymphocytes % 12.7 L %
(20.5-51.1)
Chloride 108 H mmol/L
(98-107)
Glucose 115 H mg/dl
(70-99)
Troponin I 0.115 H* ng/ml
08/21/25 12:03
08/21/25 12:03
Vital Signs
Initial and Last Documented VS:
Initial Vital Signs
Temp Pulse Resp BP Pulse Ox
97.6 F 95 18 113/74 98
08/21/25 11:51 08/21/25 11:51 08/21/25 11:51 08/21/25 11:51 08/21/25 11:51
Last Documented Vital Signs
Temp Pulse Resp BP Pulse Ox
97.6 F 89 18 89/67 94
08/21/25 11:51 08/21/25 14:30 08/21/25 14:30 08/21/25 14:00 08/21/25 14:27
MDM/Problems Addressed
MDM/Problems Addressed:
Case was reviewed with cardiology and CT surgery, patient is clinically stable and shows no evidence of atrial arrhythmia on telemetry. Will be discharged outpatient cardiology follow-up for Holter monitor
Comment
Comment:
EKG independently interpreted by me shows a normal sinus rhythm with no concerning ST changes
*Pulse Oximetry
SaO2: 94
Oxygen Mode of Delivery: Room air
Patient hypoxic: no
*Critical Care Note
Total Time (30-74mins, 75-104mins- exclusive of procedures): Not Applicable
ED Attending Note
-
Portions of this chart may have been created with voice recognition software.� Occasional wrong word or��sound alike� substitutions may have occurred due to the inherent limitations of voice recognition software.
Discharge Plan
Departure
Patient Disposition: Home (Routine Discharge)
Date of Disposition: 08/21/25
Time of Disposition: 14:25
Patient with high blood pressure during this ER visit?: No
Discharge Problem:
Irregular heart rhythm
Prescriptions:
No Action
finasteride 5 mg tablet
5 mg PO DAILY
rosuvastatin 20 mg tablet
20 mg PO QPM
tadalafil 5 mg tablet
5 mg PO Q48H
aspirin 81 mg Capsule
81 mg PO DAILY
clopidogrel 75 mg Tablet
75 mg PO DAILY Qty: 60 0RF
colchicine 0.6 mg Tablet
0.6 mg PO DAILY 26 Days Qty: 26 0RF
acetaminophen 325 mg Tablet
650 mg PO Q6HPRN PRN (Reason: mild pain,headache,temp >101F ) Qty: 0 0RF
metoprolol succinate 50 mg Tablet Extended Release 24 Hr
50 mg PO DAILY Qty: 60 0RF
sennosides [Sheryl-raul] 8.6 mg Tablet
8.6 mg PO [id number] PRN (Reason: Constipation) Qty: 0 0RF
gabapentin 100 mg Capsule
100 mg PO TID 7 Days Qty: 21 0RF
oxycodone 5 mg Tablet
2.5 - 5 mg PO Q6HPRN PRN (Reason: Moderate pain unalleviated by acetaminophen) Qty: 10 0RF
Referrals:
Juice Cardenas MD [Family Provider, Family Practice]
Xander Gonzalez MD [Active, Cardiology]
Activity Restrictions/Additional Instructions:
Call the manager estate office Saturday to set up your Holter monitor
If you develop chest pain or shortness of breath return to the emergency department immediately
Interventions
Interventions:
*Risk Screen - Suicide Last Done: 08/21/25 11:51
*General Assessment Last Done: 08/21/25 11:51
*Neglect/Abuse Screening Last Done: 08/21/25 14:36
*ED- Fall Risk Assessment Last Done: 08/21/25 14:36
*ED COVID-19 Vaccine History Last Done: 08/21/25 14:36
*ED Influenza Vaccine History Last Done: 08/21/25 14:36
*Nursing Disposition Last Done: 08/21/25 14:36
ED- Pulmonary Assessment Last Done: 08/21/25 14:35
ED- Cardiac Assessment Last Done: 08/21/25 14:35
Discharge Date and Time
Discharge Date/Time: 08/21/25 14:36
Print Language: KOREAN
== END 2025-08-21 14:36 | disposition home or self-care (01) ==
LOC: EMR 11:46
PROVIDERS: EMERGENCY PHYSICIAN Emergency Medicine; FAMILY PHYSICIAN Family Medicine
DX: I49.9 Cardiac arrhythmia, unspecified (principal); I25.10 Atherosclerotic heart disease of native coronary artery without angina pectoris; Z95.1 Presence of aortocoronary bypass graft
CPT/HCPCS: 99284; 80053; 84484; 85025; 85610; 93005

== ENCOUNTER 2025-10-01 06:54 | Outpatient (RCR) | payer BC, SELFPAY | END 2025-10-01 23:59 | disposition home or self-care (01) | LOC: CRHB 06:54 | PROVIDERS: ATTENDING PHYSICIAN Internal Medicine Cardiovascular Disease | DX: I25.10 Atherosclerotic heart disease of native coronary artery without angina pectoris (principal); Z95.1 Presence of aortocoronary bypass graft (principal) | CPT/HCPCS: 93798 ==

== ENCOUNTER 2025-10-29 06:45 | Outpatient (RCR) | payer BC, SELFPAY | END 2025-10-29 23:59 | disposition home or self-care (01) | LOC: CRHB 06:45 | PROVIDERS: ATTENDING PHYSICIAN Internal Medicine Cardiovascular Disease; FAMILY PHYSICIAN Family Medicine | DX: I25.10 Atherosclerotic heart disease of native coronary artery without angina pectoris (principal); Z95.1 Presence of aortocoronary bypass graft (principal) | CPT/HCPCS: 93797; 93798; G0422 ==